=== PATIENT | female | born 1940 | race Caucasian/White ===

== ENCOUNTER 2016-10-13 14:36 | Day surgery (SDC) | payer OTHER ==
[2016-10-13 15:00] LABS: MANUAL DIFF NEEDED? NO
[2016-10-13 15:19] LABS: EOS# 0.02 X1000 (0.0-0.7); EOS% 1.1 % (0.0-10.0); HEMATOCRIT 20.4 % (37.0-47.0); HEMOGLOBIN 6.6 g/dL (12.0-16.0); LYMPH# 0.55 X1000 (1.2-3.4); LYMPH% 30.7 % (20.5-51.1); MCH 28.2 PG (27-31); MCHC 32.4 g/dL (33-37); MCV 87.2 FL (81-99); MONO# 0.03 X1000 (0.11-0.59); MONO% 1.7 % (1.7-9.3); MPV 9.2 FL (7.4-10.4); NEUT% 66.5 % (42.2-75.2); PLT 78 X1000 (130-400); RBC 2.34 XMIL (4.2-5.4)
[2016-10-14] MEDS ORDERED: BENADRYL ONE (08:58)
[2016-10-14] MEDS ORDERED: NS 250 ML ONE (08:58)
[2016-10-14] MEDS ORDERED: TYLENOL ONE (08:58)
[2016-10-14 13:02] VITALS: BP 128/56
== END 2016-10-14 13:00 | disposition home or self-care (01) ==
LOC: INF 14:36
PROVIDERS: ATTEND Internal Medicine Medical Oncology
DX: D64.9 Anemia, unspecified (principal)
CPT/HCPCS: 36415; 36430; 85025; 86850; 86900; 86901; 86920; J1200; J7050; P9016

== ENCOUNTER 2016-12-24 21:47 | Inpatient (IN) ==
[2016-12-24 22:22] LABS: INR 1.25; PROTIME 13.3 Seconds (9.2-11.7); PTT 35.3 Seconds (22.0-36.0)
[2016-12-24 22:23] LABS: BASO% 1.2 % (0.0-0.8); HEMATOCRIT 23.2 % (37.0-47.0); HEMOGLOBIN 7.8 g/dL (12.0-16.0); IMM GRAN# 0.05 X1000 (0.0-0.04); IMM GRAN% 6.2 % (0.0-0.5); LYMPH% 74.1 % (20.5-51.1); MANUAL DIFF NEEDED? YES; MCH 27.9 PG (27-31); MCHC 33.6 g/dL (33-37); MCV 82.9 FL (81-99); MONO# 0.04 X1000 (0.11-0.59); MONO% 4.9 % (1.7-9.3); MPV 8.8 FL (7.4-10.4); NEUT% 13.6 % (42.2-75.2); PLT 122 X1000 (130-400)
[2016-12-24 22:36] LABS: LYMPHS 70 % (21-51); MONO 5 % (1-9)
[2016-12-24 22:38] LABS: AGAP 12; ALBUMIN 3.5 g/dL (3.5-5.0); ALKALINE PHOSPHATASE 90 U/L (32-104); BUN 19 mg/dL (8-22); CALCIUM 8.9 mg/dL (8.8-10.2); CHLORIDE 98 mmol/L (98-107); COSMO 270; GOT 23 U/L (10-30); GPT 16 U/L (10-36); POTASSIUM 4.2 mmol/L (3.5-5.1); SODIUM 134 mmol/L (136-145); TCO2 24 mmol/L (25-35); TOTAL PROTEIN 6.2 g/dL (6.3-8.3)
[2016-12-25] MEDS ORDERED: ZOFRAN IV PRN (02:52)
[2016-12-25] MEDS ORDERED: ULTRAM PO PRN (03:02)
[2016-12-25] MEDS ORDERED: LEVAQUIN PO SCH (03:15)
[2016-12-25] MEDS ORDERED: NS 500 ML ONE (03:42)
--- NOTE | 2016-12-25 05:20 | EKG Report ---
Test Performed on : 12/24/2016 9:53:16 PM Test Reason : WEAKNESS Blood Pressure : / mmHG Vent. Rate : 073 BPM Atrial Rate : 073 BPM P-R Int : 112 ms QRS Dur : 096 ms QT Int : 410 ms P-R-T Axes : 004 -14 035 degrees QTc Int : 451 ms Normal sinus rhythm. Normal ECG No previous ECGs available Unconfirmed Result
[2016-12-25] MEDS: PRILOSEC PO SCH (06:21)
[2016-12-25] MEDS ORDERED: HUMULIN R SUBQ SCH (07:00)
[2016-12-25] MEDS ORDERED: INSULIN PEN NEEDLES ONE (07:35)
[2016-12-25] MEDS ORDERED: CELEXA PO SCH (09:00)
[2016-12-25] MEDS ORDERED: MOBIC PO SCH (09:00)
[2016-12-25 09:03] LABS: AGAP 13; BUN 20 mg/dL (8-22); CALCIUM 8.7 mg/dL (8.8-10.2); CHLORIDE 100 mmol/L (98-107); COSMO 272; POTASSIUM 3.9 mmol/L (3.5-5.1); SODIUM 135 mmol/L (136-145); TCO2 22 mmol/L (25-35)
[2016-12-25 09:08] LABS: HEMOGLOBIN 8.6 g/dL (12.0-16.0); LYMPH# 0.59 X1000 (1.2-3.4); LYMPH% 76.6 % (20.5-51.1); MANUAL DIFF NEEDED? YES; MCH 28.3 PG (27-31); MCHC 34.4 g/dL (33-37); MCV 82.2 FL (81-99); MONO# 0.03 X1000 (0.11-0.59); MONO% 3.9 % (1.7-9.3); MPV 8.1 FL (7.4-10.4); NEUT% 19.5 % (42.2-75.2); PLT 115 X1000 (130-400); RBC 3.04 XMIL (4.2-5.4)
[2016-12-25 09:19] LABS: LYMPHS 80 % (21-51)
[2016-12-25] MEDS: CELEXA PO SCH (09:48)
[2016-12-25] MEDS: IMDUR PO SCH ×2 (09:49→21:51)
[2016-12-25] MEDS: TENEX PO SCH (09:49)
[2016-12-25] MEDS: ARICEPT PO SCH (09:49)
[2016-12-25] MEDS: NON-FORMULARY BULK MED SUBQ SCH (09:50)
--- NOTE | 2016-12-25 10:11 | HISTORY AND PHYSICAL ---
CHIEF COMPLAINT: Weakness. HISTORY OF PRESENT ILLNESS: This is a 76-year-old female who presents from home. She is not frequently admitted but she has a myelodysplastic syndrome for which she is getting treatment from Dr. Jiang. The last treatment was 1-2 weeks ago per the patient. She came in this evening because her family felt that she was not her usual self. She could no longer walk or even get up out of bed. Her workup in the ER revealed anemia which was actually improved from where she was previously but she is still very short-winded and she cannot get up and out of bed. Her hemoglobin this evening is around 7.8. She was placed in observation for a transfusion. She denies any focal source of infection. No fevers, chills, dysuria, abdominal pain, nausea, or vomiting. PAST MEDICAL HISTORY: 1. CAD. 2. Dyslipidemia. 3. Osteoporosis. 4. Type 2 diabetes. 5. CVA, history of. 6. Depression. SURGICAL HISTORY: She has had hysterectomy. ALLERGIES: Cipro, penicillin, and sulfa. REVIEW OF SYSTEMS: She has had many transfusions since July. Dr. Jiang is her primary oncologist. She has had several transfusions. Her last transfusion looked like it was on the . She had 2 units then. She had another 2 units on the , 2 units on the , on the 04 of November, on the 14 of October, in September. She was actually due for a transfusion in the morning but the family was very insistent that the patient needs to be watched overnight because her physical conditioning was very poor. Other issues, she is neutropenic but she does report she received colony-stimulating factor. Review of systems otherwise negative. FAMILY HISTORY: Reviewed and noncontributory. SOCIAL HISTORY: No tobacco or ethanol. MEDICATION LIST: She is on Celexa. Here, it says about 60 daily. Aricept 10 daily, Tenex 1 daily, Tresiba 25 units daily, Humalog, Imdur, Levaquin, Linzess, Mobic, and tramadol. PHYSICAL EXAMINATION: VITAL SIGNS: Blood pressure 126/39, heart rate 65, respiratory rate 23, temperature 99.4 degrees, 94% on room air. GENERALLY: Obese female in no acute distress. HEAD: Normocephalic, atraumatic. EYES: Pupils equal, round, reactive to light. Extraocular movements were intact. Pale conjunctivae. NECK: Supple. CARDIOVASCULAR: Regular rate and rhythm. PULMONARY: Bilateral breath sounds clear to auscultation. GI: Soft, nontender, nondistended. Bowel sounds are positive. EXTREMITIES: No clubbing or cyanosis. LYMPHATICS: No peripheral edema. NEUROLOGICAL: Examination was nonfocal. SKIN: She had diffuse small petechiae. LABORATORY DATA: White count 0.8, hemoglobin and hematocrit 7 and 23, platelets 122,000. Her neutrophil percentage is only 13%. INR 1.25. Her electrolytes were normal except for bilirubin. PROBLEM LIST: 1. Symptomatic anemia. We will go ahead and transfuse her 2 units and follow. We will get hematology/oncology opinion tomorrow. Dr. Jiang will follow. 2. Neutropenia. We will continue to monitor. Obviously, she is at risk for infection. We will monitor for elevated temperature. I am going to get blood and urine cultures, and follow clinically. It does not look like she has actually had a chest x-ray so we will go ahead and attain that. 3. Diabetes. We will continue to monitor her blood sugars and treat as follows. 4. Further care will be per Dr. Jiang and Dr. Treviño. This is his primary patient. cc: Dr. Wayne Faye MD
[2016-12-25] MEDS: LEVAQUIN PO SCH (10:16)
--- NOTE | 2016-12-25 11:58 | Diag Imaging Result Doc PS360 ---
CHEST-2 VIEWS - 12/25/2016 INDICATION: hypoxia COMPARISON: 12/10/2015 FINDINGS: Stable mild cardiomegaly. Stable calcified granulomas in the right upper lobe and hilum. No focal infiltrates, pneumothorax, or pleural effusion. IMPRESSION: Mild cardiomegaly. No change from prior. Electronically signed by Adam Gutiérrez 12/25/2016 11:55 AM
[2016-12-25] MEDS: PATIENT'S OWN MED PO SCH (12:05)
--- NOTE | 2016-12-25 12:53 | CONSULTATION ---
DATE OF CONSULTATION: 12/25/2016 REASON FOR CONSULT: This patient is known to us. 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 HISTORY OF PRESENT ILLNESS: This patient with myelodysplastic complex syndrome with complex karyotype and pancytopenia is known to us. She has had 4 cycles of Vidaza, last received on December 09, and she is due to have a repeat bone marrow biopsy performed on the of this month in [place]. She had labs in our office on the and the white count was 0.8 , hemoglobin 8.6, and platelet count of 102,000. She was afebrile, felt well, so we advised her to avoid raw foods, to drink filtered water, and wear mask anytime she is out in public. We also gave her a prescription of Levaquin 500 mg a day for 7 days. We have not been giving her any Neupogen due to her upcoming bone-marrow biopsy. She has been on Procrit for her chemotherapy-induced anemia per guidelines, and we also have been transfusing her as needed for a hemoglobin less than 8 as she has some coronary artery disease and she is also on B12 supplementation. She states that she came in after feeling just very weak. She states she had a low-grade fever of 100 point something; she does not know quite what it was. She states that she was feeling dizzy when she got up, when she would stand. Denies any drenching night sweats, new lumps, bumps, bone pain, or abdominal symptoms, any clinical bleeding, bright red stool. Labs were checked upon arriving to the ER. They showed a white count of 0.8, hemoglobin 7.8, and platelet count of a 122, 000. Patient has had a maximum temperature of 100.9 degrees since she has been admitted. She has been started on Levaquin. This was after blood and urine cultures were obtained. Blood culture tentatively negative. UA is pending. We have been asked to follow along. REVIEW OF SYSTEMS: Negative unless indicated in HPI. 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 ALLERGIES: Cipro, penicillin, sulfa. FAMILY/SOCIAL HISTORY: Family history is noncontributory. The patient denies alcohol, tobacco, or illicit drug use. MEDICATIONS: Celexa, Aricept, Levaquin, Mobic, tramadol. PHYSICAL EXAMINATION: General: This is a female, in no acute distress. HEENT: Head normocephalic, atraumatic. Pupils equal, round, symmetric. Neck: Supple. Trachea midline. Cardiovascular: S1, S2 audible to auscultation with no heaves, lifts, thrills. Pulmonary: Breath sounds clear to auscultation with normal respiratory effort. GI: Abdomen nondistended. No palpable masses. Positive bowel sounds in all 4 quadrants. It is lightly tender. Musculoskeletal: No bony abnormality. Skin: No petechiae, ecchymosis, or rash. Neurologic: Alert and oriented x3. ASSESSMENT AND PLAN: 1. Myelodysplastic syndrome with complex karyotype and pancytopenia. She has had 4 cycles of Vidaza, last received on 12/09/2016, and is due to have her repeat bone marrow biopsy on the at [facility]. She has had blood and urine cultures performed. She is currently on Levaquin. She does have a low-grade fever. Follow the cultures. Would not give any new Neupogen due to her upcoming bone-marrow biopsy. Continue to monitor CBC and transfuse as needed. Chest x- ray has been performed but has not been read yet. 2. Anemia. She had been on Procrit per guidelines. It is multifactorial from her recent chemotherapy and also for myelodysplasia. We have been transfusing as needed. 3. B12 deficiency. She has been on supplementation. 4. Coronary artery disease. Dictated by PIERCE Sandhu for Diony Jiang MD cc: PIERCE Sandhu MD M. Neel Roberts, MD [facility]PITALNubia
[2016-12-25] MEDS: HUMULIN R SUBQ SCH ×3 (14:11→21:58)
[2016-12-25 19:18] LABS: HEMATOCRIT 28.2 % (37.0-47.0); HEMOGLOBIN 9.6 g/dL (12.0-16.0); IMM GRAN# 0.05 X1000 (0.0-0.04); LYMPH# 0.43 X1000 (1.2-3.4); LYMPH% 60.6 % (20.5-51.1); MANUAL DIFF NEEDED? YES; MCH 27.8 PG (27-31); MCV 81.7 FL (81-99); MONO# 0.07 X1000 (0.11-0.59); MONO% 9.9 % (1.7-9.3); MPV 8.3 FL (7.4-10.4); NEUT% 22.5 % (42.2-75.2); PLT 115 X1000 (130-400); RBC 3.45 XMIL (4.2-5.4)
[2016-12-25 19:42] LABS: BANDS 2 % (0-1); LYMPHS 66 % (21-51)
[2016-12-25 19:43] LABS: LARGE PLATELETS OCCASIONAL
[2016-12-25 20:31] LABS: URINE CULTURE NEEDED? NO; URINE MICRO REVIEW NEEDED? NO; URINE SOURCE CATH
[2016-12-25 20:35] LABS: BILIRUBIN URINE NEGATIVE (NEGATIVE); BLOOD URINE MODERATE (NEGATIVE); COLOR YELLOW; GLUCOSE URINE NEGATIVE (NEGATIVE); LEUKOCYTES URINE NEGATIVE (NEGATIVE); NITRITE URINE NEGATIVE (NEGATIVE); PROTEIN URINE NEGATIVE (NEGATIVE); SP GRAVITY URINE 1.011; TURBIDITY URINE CLEAR (CLEAR); UR EPITHELIAL CELLS <10 /HPF (<10); URINE BACTERIA NEGATIVE /HPF; URINE RBC 20-40 /HPF (<10); URINE WBC <10 /HPF (<10); UROBILINOGEN URINE 8 mg/dL (NORMAL)
[2016-12-25] MEDS: TYLENOL PO PRN (21:51)
[2016-12-26 05:54] LABS: HEMATOCRIT 28.1 % (37.0-47.0); HEMOGLOBIN 9.7 g/dL (12.0-16.0); IMM GRAN# 0.02 X1000 (0.0-0.04); IMM GRAN% 2.9 % (0.0-0.5); LYMPH# 0.52 X1000 (1.2-3.4); LYMPH% 74.3 % (20.5-51.1); MANUAL DIFF NEEDED? YES; MCH 27.9 PG (27-31); MCHC 34.5 g/dL (33-37); MCV 80.7 FL (81-99); MONO# 0.02 X1000 (0.11-0.59); MONO% 2.9 % (1.7-9.3); MPV 8.2 FL (7.4-10.4); NEUT% 19.9 % (42.2-75.2); PLT 112 X1000 (130-400); RBC 3.48 XMIL (4.2-5.4)
[2016-12-26 06:11] LABS: LYMPHS 70 % (21-51)
[2016-12-26] MEDS: HUMULIN R SUBQ SCH ×4 (06:17→22:17)
[2016-12-26] MEDS: PRILOSEC PO SCH (06:18)
[2016-12-26] MEDS: CELEXA PO SCH (08:26)
[2016-12-26] MEDS: IMDUR PO SCH ×2 (08:26→20:26)
[2016-12-26] MEDS: PATIENT'S OWN MED PO SCH (08:26)
[2016-12-26] MEDS: TENEX PO SCH (08:27)
[2016-12-26] MEDS: LEVAQUIN PO SCH (08:27)
[2016-12-26] MEDS: ARICEPT PO SCH (08:27)
[2016-12-26] MEDS: NON-FORMULARY BULK MED SUBQ SCH (08:27)
--- NOTE | 2016-12-26 09:22 | PROGRESS NOTE ---
DATE: 12/26/2016 SUBJECTIVE: Ms. Arboleda has a longstanding history of myelodysplastic syndrome with refractory anemia. She continues with persistent neutropenia. Her total white count was 700. On admission, her white count was 810. On 12/25/2016, her white count was 710. She has been on Levaquin. Urine cultures are negative. Blood cultures are pending. Her chest x-ray was clear. Blood sugars are ranging from 91-108. She denies any polyuria, polydipsia or episodes of symptomatic hypoglycemia. OBJECTIVE: Vital Signs: T-max 101.1 degrees, current temperature 98.5 degrees. Pulse 64, BP 138/63. CV: Regular rate and rhythm. Lungs: Clear. Abdomen: Mild left lower quadrant tenderness to deep palpation. No rebound or guarding. LABORATORY DATA: BMP demonstrated the following. Sodium 135, potassium 3.9, BUN 20, creatinine 0.6, glucose 108. CBC demonstrated a white count of 0.7, hemoglobin 9.7, hematocrit 28.1, and a platelet count of 112,000. ASSESSMENT AND PLAN: 1. Febrile neutropenia. She continues with a fever. Her leukopenia and neutropenia have not improved. She has been scheduled for a bone marrow biopsy Thursday in [place], and we want to hold off giving her Neupogen in and in anticipation of that bone marrow biopsy. I am going to add Primaxin 500 mg IV q.8 hours and continue the Levaquin. We will continue broad- spectrum antibiotics. Until she is afebrile for at least 24 hours. If she continues to spike fevers over the weekend, she will not be able to have her biopsy on Thursday. 2. Type 2 insulin-dependent diabetes mellitus. Her blood sugars are stable. We will continue an 1800 calorie [employer] diet, pattern sugars, Humulin R sliding scale, and her regular home dosage of Tresiba. cc: Tomi Black MD
[2016-12-26] MEDS: PRIMAXIN 500 MG in NS 100 ML IV SCH ×2 (13:05→20:26)
[2016-12-26] MEDS: TYLENOL PO PRN (20:26)
[2016-12-27] MEDS: PRIMAXIN 500 MG in NS 100 ML IV SCH ×3 (04:55→20:37)
[2016-12-27] MEDS: PRILOSEC PO SCH (06:04)
[2016-12-27 07:19] LABS: HEMATOCRIT 27.7 % (37.0-47.0); HEMOGLOBIN 9.4 g/dL (12.0-16.0); LYMPH# 0.41 X1000 (1.2-3.4); LYMPH% 69.5 % (20.5-51.1); MANUAL DIFF NEEDED? YES; MCH 27.7 PG (27-31); MCHC 33.9 g/dL (33-37); MCV 81.7 FL (81-99); MONO# 0.04 X1000 (0.11-0.59); MONO% 6.8 % (1.7-9.3); MPV 8.3 FL (7.4-10.4); NEUT% 23.7 % (42.2-75.2); PLT 132 X1000 (130-400); RBC 3.39 XMIL (4.2-5.4)
[2016-12-27] MEDS: HUMULIN R SUBQ SCH ×4 (07:26→21:20)
[2016-12-27 07:28] LABS: LYMPHS 74 % (21-51); MONO 6 % (1-9)
--- NOTE | 2016-12-27 08:35 | PROGRESS NOTE ---
DATE: 12/27/2016 SUBJECTIVE: Ms. Arboleda has a history of MDS with refractory anemia. We have already transfused 2 units of packed red blood cells today. She last had a Vidaza treatment over 10 days ago. Her white counts remain persistently suppressed. She last spiked a fever on 12/25/2016 of 101.0. She did have low-grade fever of 99.5 last night. We had added Primaxin to the Levaquin that she was already taking. Urine and blood cultures were all negative. Chest x-rays are clear. Blood sugars are ranging from 81-123. She denies any localizing symptoms of infection including dysuria, increased urinary frequency, low back pain, nausea, vomiting or unexplained cough. SUBJECTIVE: Vital Signs: Temperature 97.8 degrees, pulse 64, respirations 18, BP 140/60, CV regular rate and rhythm. Lungs: Clear. Abdomen: Soft, nontender, with active bowel sounds. No hepatosplenomegaly. No abdominal bruits. ASSESSMENT AND PLAN: 1. Febrile neutropenia. We will continue broad-spectrum antibiotics including Primaxin and Levaquin until she has had no fever for a minimum of 24 hours. If she remains afebrile today, it is my hope to discharge her home tomorrow so that she can undergo followup bone marrow biopsy in [place] on Thursday. We will hold off giving Neupogen because it would invalidate the bone marrow biopsy. 2. Refractory anemia secondary to myelodysplastic syndrome. We will transfuse on an as-needed basis to maintain a hemoglobin greater than 8 given her history of heart disease. 3. Type 2 insulin-dependent diabetes mellitus. We will continue an 1800 calorie ADA diet, pattern sugars, Humulin R sliding scale on her regular home dosage of Tresiba. cc: Tomi Black MD
[2016-12-27] MEDS: NON-FORMULARY BULK MED SUBQ SCH (08:45)
[2016-12-27] MEDS: ARICEPT PO SCH (08:45)
[2016-12-27] MEDS: CELEXA PO SCH (08:45)
[2016-12-27] MEDS: IMDUR PO SCH ×2 (08:45→20:37)
[2016-12-27] MEDS: PATIENT'S OWN MED PO SCH (08:45)
[2016-12-27] MEDS: LEVAQUIN PO SCH (08:45)
[2016-12-27] MEDS: TENEX PO SCH (08:45)
[2016-12-28] MEDS: PRIMAXIN 500 MG in NS 100 ML IV SCH (04:51)
[2016-12-28] MEDS: HUMULIN R SUBQ SCH (06:40)
[2016-12-28] MEDS: PRILOSEC PO SCH (06:40)
[2016-12-28 07:23] LABS: HEMATOCRIT 29.2 % (37.0-47.0); LYMPH# 0.62 X1000 (1.2-3.4); LYMPH% 79.5 % (20.5-51.1); MANUAL DIFF NEEDED? YES; MCH 28.2 PG (27-31); MCHC 34.2 g/dL (33-37); MCV 82.3 FL (81-99); MONO# 0.09 X1000 (0.11-0.59); MONO% 11.5 % (1.7-9.3); MPV 8.5 FL (7.4-10.4); PLT 147 X1000 (130-400); RBC 3.55 XMIL (4.2-5.4)
[2016-12-28 08:03] LABS: BANDS 2 % (0-1); HYPOCHROM 1+; LYMPHS 81 % (21-51); MONO 5 % (1-9)
[2016-12-28 08:07] VITALS: BP 163/66
[2016-12-28] MEDS: ARICEPT PO SCH (08:46)
[2016-12-28] MEDS: PATIENT'S OWN MED PO SCH (08:47)
[2016-12-28] MEDS: TENEX PO SCH (08:47)
[2016-12-28] MEDS: CELEXA PO SCH (08:47)
[2016-12-28] MEDS: LEVAQUIN PO SCH (08:47)
[2016-12-28] MEDS: IMDUR PO SCH (08:47)
--- NOTE | 2016-12-28 13:54 | PROGRESS NOTE ---
DATE: 12/28/2016 CC/HPI: Patient has felt reasonably well yesterday. She continues to have baseline symptoms of tiredness and fatigue. The fevers have subsided. PHYSICAL EXAMINATION: Vital signs: Afebrile, 97.5, pulse 87, blood pressure 163/60. HEENT: EOMI. PERRLA. Anicteric. Mucous membranes are moist. Cardiac Exam: Regular rate and rhythm. Normal S1, S2. Chest: Clear to auscultation. Abdomen: Soft, nontender, without hepatosplenomegaly or masses. Extremities: Reveals mild edema. LABORATORY DATA: White count 0.78, hemoglobin 10, hematocrit 29, platelets 147,000. ANC is 0.07. ASSESSMENT/PLAN: 1. Neutropenic fever: She is afebrile over the last [address] Black. She is okay for discharge with Levaquin and Bactrim. She is due to have a bone marrow biopsy tomorrow at [facility]. I have advised to keep her appointment. 2. Anemia: She received 2 units of packed red blood cells this hospitalization. Hemoglobin has nicely improved. 3. Thrombocytopenia: Due to myelodysplastic syndrome. This also seems to be slightly improved. 4. High risk myelodysplastic syndrome: She has received 4 cycles of Vidaza. She is due to have a bone marrow biopsy evaluation tomorrow at [facility]. Plan further management accordingly. cc: MD Tomi Gramajo MD
--- NOTE | 2016-12-29 06:40 | DISCHARGE SUMMARY ---
ADMISSION DATE: 12/26/2016 DISCHARGE DATE: 12/28/2016 DISCHARGE DIAGNOSES: 1. Febrile neutropenia. 2. Myelodysplasia with chronic iron deficiency anemia requiring Procrit injections and chronic transfusions. 3. Chronic iron deficiency anemia secondary to myelodysplasia syndrome. 4. Essential hypertension. 5. 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 6. Primary hypothyroidism. 7. Ischemic heart disease. 8. Mixed hyperlipidemia. 9. Previous CVA. DISCHARGE INSTRUCTIONS: Return to clinic in 1 week to see me Dr. Lloyd Black in anticipation of a transition of care visit. ACTIVITY: As tolerated. DIET: 1800 calorie ADA diet MEDICATIONS: 1. Celexa 40 mg daily. 2. Aricept 10 mg daily. 3. Tenex 1 mg daily. 4. Imdur 30 mg b.i.d. 5. Levofloxacin 500 mg daily for 10 days. 6. Tresiba 25 units subcutaneously daily. 7. Humalog 12 units t.i.d. with meals. 8. Linzess 72 mcg daily. 9. Ultram 50 mg q.6 hours p.r.n. HISTORY: This is a chronically ill-appearing 76-year-old lady in no apparent distress. She is afebrile. Vital signs are stable. HEENT: Fundi with arteriolar wall thickening. Pupils equal, round and reactive to light. Extraocular eye movements intact. TMs without bullae. Neck supple. No masses, JVD or bruits. CV: Regular rate and rhythm. Lungs: Clear. Abdomen: Soft and nontender with active bowel sounds. HOSPITAL COURSE: The patient has a longstanding history of myelodysplasia syndrome with refractory anemia requiring chronic transfusions and Procrit injections. She was initially admitted to [facility] for weakness. She was noted to be markedly anemic. Her hemoglobin was 7.8 and her hematocrit was 23.2. She was transfused 2 units of packed red blood cells. At discharge, her hemoglobin was 10.0 and her hematocrit was 29.2. We attempt to maintain hemoglobin greater than 8 given her underlying ischemic heart disease. She has been persistently neutropenic and has been taking oral Levaquin as an outpatient. She remained significantly neutropenic. Her white count was 0.81 on admission and 0.78 on discharge. She is scheduled for a bone marrow biopsy at [facility] tomorrow and therefore we did not give her Neupogen injections during her hospitalization. She did spike a fever and we placed her on broad-spectrum antibiotics including Levaquin and Primaxin. Blood cultures were negative. Urine culture was negative. Chest x-rays were negative. She was maintained on IV antibiotics until she remained afebrile. She has not had any fever in [address] Jiang and I felt that she was stable for discharge, and we will discharge her home on oral Levaquin 500 mg daily for an additional 10 days. She does have a longstanding history of hypertension. Her blood pressure remained well controlled. She denied any chest pain, palpitations, or anginal equivalents. We will make arrangements for her to have home health at home. I would like a psych social worker to assess her home needs. She is still weak and I believe that she would benefit from physical therapy at home. cc: Tomi Black MD
[2016-12-29] MEDS ORDERED: LEVAQUIN PO SCH (09:00)
--- NOTE | 2017-01-08 14:44 | PROVIDER DOCUMENTATION ---
This chart was entered by Isis Jaramillo Scribe, acting as scribe for Hudson Simmons MD. HPI-General Adult - General Chief Complaint: Weakness Stated Complaint: weakness Time Seen by Provider: 12/25/16 01:01 Source: patient Allergies/Adverse Reactions: Patient Allergies Allergy/AdvReac Type Severity Reaction Status Date / Time ciprofloxacin Allergy RASH Verified 12/19/16 09:30 Penicillins Allergy RASH Verified 12/19/16 09:30 Sulfa (Sulfonamide Allergy RASH Verified 12/19/16 09:30 Antibiotics) Home Medications: Home Medication List Medication Instructions Recorded Confirmed Last Taken Type Citalopram [Celexa] 40 mg PO DAILY 03/04/13 01/13/17 01/13/17 06:30 History Isosorbide Mononitrate E.r. [Imdur] 30 mg PO BID 09/08/13 01/13/17 01/13/17 06: 30 History Donepezil [Aricept] 10 mg PO QAM 07/30/16 01/13/17 01/13/17 06:30 History Insulin Degludec [Tresiba 25 unit SQ DAILY 07/30/16 01/13/17 01/12/17 History Flextouch U-100] Insulin Lispro [Humalog] 12 unit SQ AC + HS 07/30/16 01/13/17 01/12/17 History Meloxicam [Mobic] 7.5 mg PO DAILY 07/30/16 01/13/17 01/13/17 06:30 History Guanfacine [Tenex] 1 mg PO DAILY 12/19/16 01/13/17 01/13/17 06:30 History Tramadol HCl 50 mg PO Q6H PRN PRN 12/19/16 01/13/17 12/19/16 History Linaclotide [Linzess] 72 mcg PO DAILY 12/24/16 01/13/17 01/13/17 06:30 History Levofloxacin [Levaquin] 500 mg PO DAILY #10 tablet 12/28/16 01/13/17 01/12/17 Rx Omeprazole [Prilosec] 40 mg PO DAILY@0700 capsule 12/28/16 01/13/17 01/13/17 06 :30 Rx - History of Present Illness -Gen Adult Nature of Presenting Problems: 76 year old F presents to the ED with a cc of generalized weakness with an onset of this evening. Son states that she is usually weak but is able to get around. He states tonight pt was unable to lift herself off the couch. PT has MDS and states that she has had 4 chemo treatments. PT states that she had a blood transfusion on Thursday of 2 units. Blood levels were checked on Thursday and Hgb was 8.7. Location of Pain/Injury: reports: none Pain Radiation: reports: no radiation Severity: reports: mild Onset/Duration: reports: this evening Timing: reports: still present Context/Activities at Onset: reports: none Modifying Factors: improves with: nothing Associated Symptoms: reports: weakness Similar Symptoms Previously?: No Recently seen or treated by another doctor?: Yes Review of Systems - Adult - REVIEW OF SYSTEMS - ADULT Constitutional: denies: chills, fever Eyes: reports: no symptoms reported Ears, Nose, Mouth & Throat: reports: no symptoms reported Cardiovascular: reports: no symptoms reported Respiratory: reports: no symptoms reported Gastrointestinal: denies: nausea, vomiting Genitourinary: denies: dysuria, hematuria Musculoskeletal: reports: muscle weakness. denies: muscle aches Integumentary: denies: skin sores/ulcer, skin thickening Neurological: reports: no symptoms reported Psychiatric: reports: no symptoms reported Endocrine: reports: no symptoms reported Hematologic/Lymphatic: reports: no symptoms reported Allergic/Immunologic: reports: no symptoms reported All Other Systems: Reviewed and Negative Past History - Adult - PAST MEDICAL HISTORY-ADULT Review of Records: reports: Nursing Assessment Review, Medications Reviewed Major Childhood Illnesses: reports: denies history Cardiovascular: reports: HTN Endocrine/Immune: reports: cancer (MDS), Diabetes - PRIOR SURGERIES/PROCEDURES Surgical/Procedure History: reports: hysterectomy - IMMUNIZATION STATUS Childhood Immunizations: See Nurse Assessment Flu Vaccine: See Nurse Assessment - SOCIAL HISTORY Smoking: non-smoker Substance Use: none/never Alcohol Use Frequency: occasionally Physical Exam-General - PHYSICAL EXAM-ADULT Initial Vital Signs Reviewed: Yes - CONSTITUTIONAL General Appearance: appears well, alert, no apparent distress - RESPIRATORY Respiratory: chest non-tender, lungs clear, normal breath sounds - CARDIOVASCULAR Cardiovascular: normal peripheral pulses, regular rate, rhythm, no edema - GASTROINTESTINAL (ABDOMEN) Abdominal Exam: normal bowel sounds, non tender, soft - SKIN Integumentary: petechiae (anterior chest, upper thighs) - PSYCHIATRIC Psych/Mental Status: normal mood/affect, normal thought content, normal thought process, oriented x 3 Progress - PLAN OF CARE/RESULTS Progress/Plan/Lab Results: Vital Signs - 8 hr 12/24/16 22:09 12/25/16 00:10 Temperature 98.2 F Pulse Rate 71 67 Respiratory Rate 24 31 H Blood Pressure 148/42 149/46 O2 Sat by Pulse Oximetry 92 L 95 Laboratory Results - last 24 hr 12/24/16 12/24/16 12/24/16 21:56 22:00 22:00 WBC 0.81 L RBC 2.80 L Hgb 7.8 L Hct 23.2 L MCV 82.9 MCH 27.9 MCHC 33.6 RDW Std Deviation 13.0 Plt Count 122 L MPV 8.8 Immature Gran % (Auto) 6.2 H Neut % (Auto) 13.6 L Lymph % (Auto) 74.1 H [place] % (Auto) 4.9 Eos % (Auto) 0.0 Baso % (Auto) 1.2 H Immature Gran # (Auto) 0.05 H Neut # (Auto) 0.11 L* Lymph # (Auto) 0.60 L [place] # (Auto) 0.04 L Eos # (Auto) 0.00 Baso # (Auto) 0.01 Segmented Neutrophils 25 L Lymphocytes 70 H Monocytes 5 PT INR PTT (Actin FS) Sodium 134 L Potassium 4.2 Chloride 98 Carbon Dioxide 24 L Anion Gap 12 BUN 19 Creatinine 0.8 Estimated GFR/1.73 m2 > 60 BUN/Creatinine Ratio 24 Glucose 95 POC Glucose 91 Calculated Osmolality 270 Calcium 8.9 Total Bilirubin 1.30 H AST 23 ALT 16 Alkaline Phosphatase 90 Total Protein 6.2 L Albumin 3.5 Globulin 2.7 Albumin/Globulin Ratio 1.3 Blood Type Antibody Screen 12/24/16 12/24/16 22:00 22:00 WBC RBC Hgb Hct MCV MCH MCHC RDW Std Deviation Plt Count MPV Immature Gran % (Auto) Neut % (Auto) Lymph % (Auto) [place] % (Auto) Eos % (Auto) Baso % (Auto) Immature Gran # (Auto) Neut # (Auto) Lymph # (Auto) [place] # (Auto) Eos # (Auto) Baso # (Auto) Segmented Neutrophils Lymphocytes Monocytes PT 13.3 H INR 1.25 PTT (Actin FS) 35.3 Sodium Potassium Chloride Carbon Dioxide Anion Gap BUN Creatinine Estimated GFR/1.73 m2 BUN/Creatinine Ratio Glucose POC Glucose Calculated Osmolality Calcium Total Bilirubin AST ALT Alkaline Phosphatase Total Protein Albumin Globulin Albumin/Globulin Ratio Blood Type O NEGATIVE Antibody Screen NEGATIVE Orders Category Date Time Status CBC WITH DIFF [HEME] Stat Lab 12/24/16 22:00 Completed COMPREHENSIVE METABOLIC PANEL [CHEM] Stat Lab 12/24/16 22:00 Completed PROTIME WITH INR [COAG] Stat Lab 12/24/16 22:00 Completed PTT [COAG] Stat Lab 12/24/16 22:00 Completed TYPE & SCREEN [BBK] Stat Lab 12/24/16 22:00 Completed EKG [EKG] Stat Ther 12/24/16 21:50 Ordered Result Diagrams: 12/28/16 06:33 12/25/16 08:35 - EKG 1 Time of EKG reading by physician:: 21:53 EKG Read and Signed by:: Hudson Simmons EKG Interpretation (*Must complete 3 of following elements*): Normal Rate: 73 Rhythm: NSR [place]: normal - CONSULTS/PCP/HOSPITALIST Notification #1 *Consult/PCP/Hospitalist*: Dr. Faye(hospitalist) Time Discussed: 01:30 Consult Disposition: Admit Departure - Departure Date of Disposition Decision: 12/14/16 Time of Disposition Decision: 01:00 DIAGNOSIS: Myelodysplasia (myelodysplastic syndrome) Anemia Qualifiers: Anemia type: bone marrow failure Disposition: ADMITTED INPATIENT 09 Certified Medical Emergency: Emergent Condition: Stable - Critical Care Note This patient required my direct & personal management of CC.: No This chart was documented by the indicated scribe, (Isis Jaramillo Scribe) and accurately reflects the services I performed and decisions made by me, Hudson Simmons MD, as attested by the provider's signature.
== END 2016-12-28 11:30 | disposition home health service (06) ==
LOC: SUPCPDRO → 3N 21:47 → ED 21:47 → SUATTDRO 12-25 02:09
PROVIDERS: ADMIT Internal Medicine; ATTEND Internal Medicine

== ENCOUNTER 2017-01-28 12:32 | Inpatient (IN) ==
[2017-01-28 11:47] LABS: AGAP 13; BUN 16 mg/dL (8-22); CALCIUM 9.3 mg/dL (8.8-10.2); CHLORIDE 103 mmol/L (98-107); COSMO 286; POTASSIUM 4.2 mmol/L (3.5-5.1); SODIUM 141 mmol/L (136-145); TCO2 25 mmol/L (25-35)
[2017-01-28] MEDS ORDERED: TYLENOL PO PRN (12:37)
[2017-01-28] MEDS ORDERED: ZOFRAN IV PRN (12:37)
[2017-01-28] MEDS ORDERED: VANCOMYCIN IV PER PHARMACY MISC SCH (12:37)
[2017-01-28 12:47] LABS: EOS# 0.01 X1000 (0.0-0.7); HEMATOCRIT 24.3 % (37.0-47.0); LYMPH# 0.34 X1000 (1.2-3.4); LYMPH% 69.4 % (20.5-51.1); MANUAL DIFF NEEDED? YES; MCH 27.5 PG (27-31); MCHC 32.9 g/dL (33-37); MCV 83.5 FL (81-99); MONO# 0.01 X1000 (0.11-0.59); MPV 9.1 FL (7.4-10.4); NEUT% 26.6 % (42.2-75.2); PLT 38 X1000 (130-400); RBC 2.91 XMIL (4.2-5.4)
[2017-01-28 12:48] LABS: LYMPHS 80 % (21-51)
--- NOTE | 2017-01-28 13:11 | Diag Imaging Result Doc PS360 ---
EXAM: CHEST-PORTABLE INDICATION: FEBRILE NEUTROPENIA TECHNIQUE: One view COMPARISON: 01/13/2017 FINDINGS: There is stable right chest port. There is evidence of prior granulomatous disease, stable. The lungs are grossly clear. There is no discrete pleural fluid collection or pneumothorax. The cardiac silhouette is borderline to mildly prominent but stable. Central vasculature is unremarkable. IMPRESSION: Borderline to mildly prominent heart. No definite acute pathology. Electronically signed by Steve Gomez 01/28/2017 1:09 PM
[2017-01-28] MEDS: PRIMAXIN 1,000 MG in NS 250 ML IV SCH (13:55)
[2017-01-28] MEDS: NS 1,000 ML IV SCH (13:55)
[2017-01-28 15:42] LABS: URINE CULTURE NEEDED? NO; URINE MICRO REVIEW NEEDED? NO; URINE SOURCE CLEAN CATCH
[2017-01-28 15:49] LABS: BILIRUBIN URINE SMALL (NEGATIVE); BLOOD URINE NEGATIVE (NEGATIVE); COLOR YELLOW; GLUCOSE URINE NEGATIVE (NEGATIVE); LEUKOCYTES URINE NEGATIVE (NEGATIVE); NITRITE URINE NEGATIVE (NEGATIVE); PH URINE 5.5; PROTEIN URINE 30 mg/dL (NEGATIVE); SP GRAVITY URINE 1.045; TURBIDITY URINE CLEAR (CLEAR); UROBILINOGEN URINE 6 mg/dL (NORMAL)
[2017-01-28 15:50] LABS: UR EPITHELIAL CELLS <10 /HPF (<10); URINE BACTERIA NEGATIVE /HPF; URINE RBC <10 /HPF (<10); URINE WBC <10 /HPF (<10)
[2017-01-28] MEDS: VANCOMYCIN 1.25 GM in NS 250 ML IV SCH (16:00)
[2017-01-28] MEDS: HUMULIN R SUBQ SCH ×2 (16:00→21:35)
[2017-01-28] MEDS: IMDUR PO SCH (21:48)
[2017-01-29] MEDS: PRIMAXIN 1,000 MG in NS 250 ML IV SCH ×2 (02:02→14:42)
[2017-01-29] MEDS: NS 1,000 ML IV SCH ×3 (04:03→18:21)
[2017-01-29] MEDS: HUMULIN R SUBQ SCH ×4 (06:04→20:30)
[2017-01-29] MEDS: PRILOSEC PO SCH (06:04)
[2017-01-29] MEDS ORDERED: NON-FORMULARY BULK MED SUBQ SCH (09:00)
[2017-01-29 09:11] LABS: BASO% 1.9 % (0.0-0.8); EOS# 0.01 X1000 (0.0-0.7); EOS% 1.9 % (0.0-10.0); HEMATOCRIT 23.2 % (37.0-47.0); HEMOGLOBIN 7.8 g/dL (12.0-16.0); LYMPH# 0.43 X1000 (1.2-3.4); LYMPH% 81.1 % (20.5-51.1); MANUAL DIFF NEEDED? YES; MCH 28.1 PG (27-31); MCHC 33.6 g/dL (33-37); MCV 83.5 FL (81-99); MONO# 0.01 X1000 (0.11-0.59); MONO% 1.9 % (1.7-9.3); MPV 8.6 FL (7.4-10.4); NEUT% 13.2 % (42.2-75.2); PLT 41 X1000 (130-400); RBC 2.78 XMIL (4.2-5.4)
[2017-01-29 09:38] LABS: LYMPHS 95 % (21-51)
[2017-01-29] MEDS: CELEXA PO SCH (10:12)
[2017-01-29] MEDS: IMDUR PO SCH ×2 (10:12→20:30)
[2017-01-29] MEDS: ARICEPT PO SCH (10:12)
[2017-01-29] MEDS: PATIENT'S OWN MED PO SCH (10:14)
--- NOTE | 2017-01-29 10:44 | PROGRESS NOTE ---
DATE: 01/29/2017 SUBJECTIVE: Mrs. 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 She has been taking oral Levaquin on a daily basis. She was admitted with a fever and chills. Her CBC demonstrated a white count of 0.53, hemoglobin 7.8, and hematocrit of 23.2 this morning. She had a platelet count of 41,000. A urine culture from admission was unremarkable blood cultures from 01/27/2017 were also within normal limits. She has had no further fever chills or hard shaking rigors. There is less erythema, induration, and swelling over the port. Blood pressure is trending upward off blood pressure medicines. This morning her blood pressure was 132/46. Her blood sugars are persistently less than 100. OBJECTIVE: Vital signs: Temperature 98.5 degrees, pulse 66, respirations 16, BP 132/46. CV: Regular rate and rhythm. Lungs: Clear. Abdomen: Soft, nontender, with active bowel sounds. Skin: There is less erythema induration and swelling over the port site. ASSESSMENT AND PLAN: 1. Febrile neutropenia. She has persistent refractory neutropenia. She has just started another chemotherapy agent but unfortunately I feel that her long-term prognosis is poor. We will continue Primaxin and vancomycin pending final cultures. If the 2nd set of blood cultures is still negative at 48 hours, I will arrange for the placement of a PICC line to continue home IV antibiotics with Primaxin and vancomycin for at least an additional 2 weeks. I suspect that the source of the infection is an infected port. She may have just a small local abscess which hopefully will clear with prolonged IV antibiotic therapy. If we cannot clear up the port associated infection, she will need a new port. 2. 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 Given her history of ischemic heart disease, I will type, cross match, and transfuse 1 unit of packed red blood cell in order to keep her hemoglobin at a level of 8 or greater. 3. 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 Blood sugars are too tight. I will continue pattern sugars, Humulin R sliding scale, and an 1800 calorie ADA diet but reduce the dosage of Tresiba to 15 units daily. cc: Tomi Black MD
--- NOTE | 2017-01-29 12:01 | CONSULTATION ---
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 HISTORY OF PRESENT ILLNESS: This patient is known to us with myelodysplastic syndrome converted to AML. She has been transfusion dependent. She has been started on Dacogen and has received 1 cycle of it, last on 01/16/2017. She is chronically pancytopenic. She is on Levaquin daily. She began developing some fever with rigors and night sweats several days ago. She does not know how high her fever was. She was seen at Dr. Kaplan's office and he apparently performed some blood cultures. I do not have these results. She was then seen by her primary care physician, Dr. Black, and complained of the same. Dr. Black noted some erythema to her port site with mild tenderness so he decided to place her inpatient for IV antibiotics. She is currently on vancomycin and Primaxin. Her white count is 0.53, hemoglobin is 7.8, hematocrit is 23.2, platelet count is 41,000. Her white count and platelet count are essentially unchanged from our office. She denies dyspnea or chest pain. REVIEW OF SYSTEMS: Negative unless indicated in the HPI. ALLERGIES: Cipro, penicillin, sulfa drugs. PREVIOUS MEDICAL HISTORY: 1. MDS converted to AML as above. She is transfusion dependent. 2. B12 deficiency, on replacement. 3. Pancytopenia secondary to above. She is transfusion dependent and on chronic Levaquin. 4. She does have known coronary artery disease. 5. Type 2 diabetes. FAMILY AND SOCIAL HISTORY: The patient has good family support. She denies alcohol, tobacco, or illicit drug use. HOME MEDICATIONS: Levaquin, Mobic, tramadol, Celexa, Aricept, Toprol, isosorbide. PHYSICAL EXAMINATION: General: This is a female, in no acute distress. HEENT: Head is normocephalic, atraumatic. Pupils equal, round, and symmetric. Mucous membranes are dry. Trachea is midline. Cardiovascular: S1, S2 audible on auscultation with no heaves, lifts, thrills, or murmurs. Pulmonary: Breath sounds clear to auscultation. Normal respiratory effort. GI: Abdomen is soft, nontender, nondistended. Positive bowel sounds in all 4 quadrants. Skin: No petechiae, ecchymosis, or rash. Musculoskeletal: Moves all extremities. Neurologic: Alert and oriented x3. Psychiatric: Appropriate to the situation. Port site: erythematous and angry looking. DIAGNOSTIC DATA: Chest x-ray shows no acute process. WBCs 0.53, hemoglobin 7.8 , hematocrit 23.2, platelet count 41,000. Blood cultures are pending, as is urine culture. ASSESSMENT AND PLAN: 1. 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 She has had 1 cycle. She is also transfusion dependent. 2. Pancytopenia secondary to above. Transfuse as an as needed basis. She is also on antibiotics per primary team, currently Primaxin and vancomycin. 3. Port infection. She is on Primaxin and vancomycin. Blood cultures are pending. 4. Coronary artery disease. Plan to transfuse as needed for hemoglobin less than 8. Dictated by PIERCE Sandhu for Diony Jiang MD cc: PIERCE Sandhu MD M. Neel Roberts, MD MTDD
[2017-01-29] MEDS ORDERED: BENADRYL PO ONE (13:25)
[2017-01-29] MEDS: VANCOMYCIN 1.25 GM in NS 250 ML IV SCH (16:09)
[2017-01-29] MEDS ORDERED: NS 250 ML ONE (16:20)
[2017-01-29] MEDS: DESYREL PO PRN (20:32)
[2017-01-30] MEDS: PRIMAXIN 1,000 MG in NS 250 ML IV SCH ×2 (00:58→16:06)
[2017-01-30] MEDS: NS 1,000 ML IV SCH ×2 (06:04→22:18)
[2017-01-30] MEDS: PRILOSEC PO SCH (06:04)
[2017-01-30] MEDS: HUMULIN R SUBQ SCH ×4 (06:06→22:15)
[2017-01-30 07:09] LABS: HEMATOCRIT 24.3 % (37.0-47.0); HEMOGLOBIN 8.2 g/dL (12.0-16.0); LYMPH# 0.42 X1000 (1.2-3.4); LYMPH% 82.4 % (20.5-51.1); MANUAL DIFF NEEDED? YES; MCH 28.1 PG (27-31); MCHC 33.7 g/dL (33-37); MCV 83.2 FL (81-99); MONO# 0.02 X1000 (0.11-0.59); MONO% 3.9 % (1.7-9.3); MPV 8.9 FL (7.4-10.4); NEUT% 13.7 % (42.2-75.2); PLT 44 X1000 (130-400); RBC 2.92 XMIL (4.2-5.4)
[2017-01-30] MEDS ORDERED: INSULIN PEN NEEDLES ONE (07:09)
[2017-01-30 07:30] LABS: BANDS 5 % (0-1); LYMPHS 85 % (21-51)
[2017-01-30] MEDS: CELEXA PO SCH (08:25)
[2017-01-30] MEDS: IMDUR PO SCH ×2 (08:25→22:15)
[2017-01-30] MEDS: NON-FORMULARY BULK MED SUBQ SCH (08:26)
[2017-01-30] MEDS: ARICEPT PO SCH (08:27)
[2017-01-30 08:30] LABS: INR 1.12; PROTIME 11.8 Seconds (9.2-11.7)
[2017-01-30] MEDS: PATIENT'S OWN MED PO SCH (08:30)
--- NOTE | 2017-01-30 08:30 | PROGRESS NOTE ---
DATE: 01/30/2017 SUBJECTIVE: Ms. Arboleda was admitted to [facility] with febrile neutropenia. She has had a longstanding history of myelodysplasia, which has converted to acute myelogenous leukemia. Unfortunately, she is not responding to chemotherapy. She has been persistently neutropenic for the past several weeks. She was admitted with febrile neutropenia. She remains afebrile. Urine cultures and blood cultures are negative. A chest x-ray was clear. Blood sugars are ranging from 136-188. We had reduced the dosage of Tresiba to 15 units daily because of persistent hypotension. The port site is much less inflamed and tender. Induration is resolving. OBJECTIVE: Vital Signs: Temperature 98.5 degrees ,pulse 68, BP 156/59. CV: Regular rate and rhythm. Lungs: Clear. Abdomen: Soft, nontender, with active bowel sounds. No hepatosplenomegaly. No abdominal bruits. LABS: Various laboratory studies were performed. A CBC demonstrated a white count 0.51, hemoglobin 8.2, hematocrit 24.3 and a platelet count of 44,000. ASSESSMENT AND PLAN: 1. Febrile neutropenia with systemic inflammatory response syndrome. I suspect that the port was the source of infection. The swelling, erythema and induration around the port has improved greatly on IV antibiotics. We will consult the peripherally inserted central catheter team for line placement. Today we will try to arrange for home IV therapy with Primaxin and vancomycin for an additional 2 weeks and then will recheck blood cultures. We are hoping to be able to avoid having to pull the port. 2. 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 We will transfuse on a p.r.n. basis to maintain hemoglobin greater than 8. 3. Type 2 insulin-dependent diabetes mellitus. I am going to increase Tresiba to 20 units subcutaneously daily. cc: Tomi Black MD
[2017-01-30] MEDS ORDERED: NS 250 ML ONE (13:12)
[2017-01-30] MEDS: VANCOMYCIN 1.25 GM in NS 250 ML IV SCH (14:00)
[2017-01-30] MEDS: DESYREL PO PRN (22:20)
[2017-01-31] MEDS: NS 1,000 ML IV SCH ×2 (01:39→15:44)
[2017-01-31] MEDS: PRIMAXIN 1,000 MG in NS 250 ML IV SCH ×2 (01:39→14:27)
[2017-01-31] MEDS: PRILOSEC PO SCH (06:13)
[2017-01-31] MEDS: HUMULIN R SUBQ SCH ×3 (06:18→15:46)
[2017-01-31 07:13] LABS: EOS# 0.01 X1000 (0.0-0.7); EOS% 2.3 % (0.0-10.0); HEMATOCRIT 22.8 % (37.0-47.0); HEMOGLOBIN 7.6 g/dL (12.0-16.0); LYMPH# 0.35 X1000 (1.2-3.4); LYMPH% 81.4 % (20.5-51.1); MANUAL DIFF NEEDED? YES; MCH 27.8 PG (27-31); MCHC 33.3 g/dL (33-37); MCV 83.5 FL (81-99); MONO# 0.01 X1000 (0.11-0.59); MONO% 2.3 % (1.7-9.3); MPV 8.4 FL (7.4-10.4); PLT 62 X1000 (130-400); RBC 2.73 XMIL (4.2-5.4)
[2017-01-31 07:56] LABS: LYMPHS 90 % (21-51); MONO 5 % (1-9)
[2017-01-31] MEDS: IMDUR PO SCH (08:41)
[2017-01-31] MEDS: ARICEPT PO SCH (08:41)
[2017-01-31] MEDS: CELEXA PO SCH (08:41)
[2017-01-31] MEDS: NON-FORMULARY BULK MED SUBQ SCH (08:43)
[2017-01-31 14:27] VITALS: BP 168/69
--- NOTE | 2017-01-31 15:08 | DISCHARGE SUMMARY ---
ADMISSION DATE: 01/28/2017 DISCHARGE DATE: 01/31/2017 ADMISSION DIAGNOSES: 1. Febrile neutropenia with systemic inflammatory response syndrome secondary to suspected port infection. 2. Transfusion dependent anemia of chronic disease. 3. Myelodysplasia with recent conversion to acute myelogenous leukemia. 4. Ischemic heart disease. 5. 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 6. Mixed hyperlipidemia. 7. Gastroesophageal reflux disease. 8. Essential hypertension. DISCHARGE INSTRUCTIONS: 1. Follow up to see me, Dr. Lloyd Black, in 1 week for transition of care visit. 2. 1800 calorie ADA diet. DISCHARGE MEDICATIONS: 1. Aricept 10 mg daily. 2. Celexa 40 mg daily. 3. Tresiba 15 units subcutaneously daily. 4. Toprol-XL 50 mg daily. 5. Imdur 30 mg b.i.d. 6. Primaxin 1000 mg IV q.12 hours for 2 weeks. 7. Vancomycin 1.25 g IV q.24 hours for 2 weeks. 8. Humalog 12 units plus sliding scale t.i.d. with meals. DISCHARGE PHYSICAL EXAMINATION: This is a chronically ill-appearing, 76-year-old, lady in no apparent distress. She is afebrile. Vital signs are stable. Which you please add. REASON FOR ADMISSION / HOSPITAL COURSE: Mrs. Gaby Arboleda was admitted to [facility] with febrile neutropenia. She has been chronically neutropenic and has been taking oral Levaquin on a daily basis. Recent bone marrow biopsy demonstrated conversion of myelodysplasia to acute myelogenous leukemia. She presented with fevers as high as 101 degrees at home, hard shaking rigors and night sweats. The patient was admitted to [facility] where she was treated with broad-spectrum antibiotics including Primaxin 1000 mg IV q.12 hours and vancomycin 1.25 g IV q.24 hours pending cultures. Blood cultures from 01/27/2017 were within normal limits. Follow-up blood cultures and urine culture from admission were also negative. Chest x-rays were clear. It appeared that her port site was infected. The area over the port was markedly indurated, erythematous and tender to palpation. There was some fluctuance. Given her fever and low white count we felt that she had a systemic inflammatory response syndrome. With aggressive IV antibiotics the area over the port improved significantly at the time of discharge. She did not have any significant erythema, tenderness or redness over the site of the port. I spoke to Dr. Jiang who also followed the patient while she was hospitalized. We felt that she would benefit from a prolonged IV course of antibiotics and a PICC line was placed. We made arrangements with [facility] for the PICC line at home and to administer the IV antibiotics. She will continue Primaxin 1000 mg IV q.12 hours and vancomycin 1.25 g IV q.24 hours for an additional 2 weeks. We will recheck cultures after completion of the IV antibiotics. She does have a longstanding history of refractory anemia. We did give her a unit of blood earlier in her hospitalization. We would like to see her hemoglobin 8 or greater in the setting of ischemic heart disease. On the morning of discharge her hemoglobin and hematocrit were noted to be 7.6 and 22.8. She will be given 2 units of packed red blood cells today and will be discharged home following the transfusion. She does have a longstanding history of hypertension. She had been taking Toprol-XL 50 mg daily and Tenex 1 mg p.o. b.i.d. She was markedly hypotensive on admission. We held her blood pressure medications. Her blood pressure trended upward and we resumed the Toprol-XL 50 mg daily. She has a history of type 2 insulin-dependent diabetes mellitus complicated by polyneuropathy. Her appetite is diminished. She is not eating very well. We held the Humalog 12 units plus sliding scale prior to meals. We resumed the Tresiba 25 units subcutaneously daily. Because of episodes of hypoglycemia we reduced the dosage of Tresiba to 15 units subcutaneously daily. Having reached maximum hospital benefit, the patient was discharged in stable condition. cc: Tomi Black MD
[2017-01-31] MEDS: VANCOMYCIN 1.25 GM in NS 250 ML IV SCH (15:44)
[2017-01-31] MEDS: PATIENT'S OWN MED PO SCH (15:44)
== END 2017-01-31 15:47 | disposition home health service (06) ==
LOC: 3N 19:13
PROVIDERS: ADMIT Internal Medicine; ATTEND Internal Medicine

== ENCOUNTER 2017-02-23 10:45 | Inpatient (IN) ==
[2017-02-23] MEDS ORDERED: ASPIRIN PO STA (11:06)
--- NOTE | 2017-02-23 11:33 | Diag Imaging Result Doc PS360 ---
EXAM: CHEST-PORTABLE HISTORY: CP TECHNIQUE: Portable AP COMPARISON: 01/28/2017 FINDINGS: No change in the right jugular portacatheter. Interval placement of the left sided PICC line. The tip overlies the upper spur vena cava. The heart is enlarged. Mild central vascular prominence. No pleural effusions identified. No consolidation. IMPRESSION: Poor inspiratory effort with mild cardiomegaly and mild central vascular prominence. Electronically signed by Adan Randle 02/23/2017 11:31 AM
[2017-02-23 11:47] LABS: INR 1.23; PROTIME 13.1 Seconds (9.2-11.7); PTT 36.5 Seconds (22.0-36.0)
[2017-02-23 11:52] LABS: AGAP 16; ALBUMIN 3.4 g/dL (3.5-5.0); ALKALINE PHOSPHATASE 138 U/L (32-104); BUN 12 mg/dL (8-22); CALCIUM 8.9 mg/dL (8.8-10.2); CHLORIDE 95 mmol/L (98-107); CK PROFILE 13 U/L (24-173); COSMO 270; GOT 20 U/L (10-30); GPT 12 U/L (10-36); MAGNESIUM 1.7 mg/dL (1.5-2.7); POTASSIUM 4.2 mmol/L (3.5-5.1); SODIUM 133 mmol/L (136-145); TCO2 22 mmol/L (25-35); TOTAL BILIRUBIN 0.84 mg/dL (0.20-1.00); TOTAL PROTEIN 6.8 g/dL (6.3-8.3)
[2017-02-23 11:53] LABS: BASO% 1.1 % (0.0-0.8); EOS# 0.01 X1000 (0.0-0.7); EOS% 1.1 % (0.0-10.0); HEMATOCRIT 23.6 % (37.0-47.0); HEMOGLOBIN 8.2 g/dL (12.0-16.0); LYMPH# 0.43 X1000 (1.2-3.4); LYMPH% 45.3 % (20.5-51.1); MANUAL DIFF NEEDED? YES; MCH 28.3 PG (27-31); MCHC 34.7 g/dL (33-37); MCV 81.4 FL (81-99); MONO# 0.09 X1000 (0.11-0.59); MONO% 9.5 % (1.7-9.3); MPV 8.2 FL (7.4-10.4); PLT 43 X1000 (130-400)
[2017-02-23 12:21] LABS: BANDS 10 % (0-1); LYMPHS 25 % (21-51); MONO 10 % (1-9)
--- NOTE | 2017-02-23 12:49 | Diag Imaging Result Doc PS360 ---
EXAM: ANGIOGRAM/PULMONARY ARTERIES HISTORY: difficulty breathing, left arm swollen TECHNIQUE: CT of the chest with intravenous contrast and reduced radiation dose (clarity.) COMMENT: There are no filling defects in the pulmonary arteries. The aorta is not distended and there is no evidence of dissection. There is a PICC line on the left with its tip in superior vena cava. There is extensive coronary calcification. There is a small effusion in the pericardium. There are bilateral small pleural effusions. The heart size has increased considerably since the previous study of 03/07/2013. The transverse dimension of the heart has increased from 14.5 cm to 16 cm. There is some patchy atelectasis and increased interstitial markings bilaterally. This was not the case at the time the previous study. IMPRESSION: Cardiomegaly, pleural and pericardial effusions and mild interstitial pulmonary edema. Subsegmental atelectasis. No evidence of pulmonary emboli. Findings were discussed with Dr. Black in person at 1240. Electronically signed by Akash Anton 02/23/2017 12:47 PM
--- NOTE | 2017-02-23 13:13 | PROVIDER DOCUMENTATION ---
This chart was entered by Su Jim Scribe, acting as scribe for Bobby Scott MD. HPI-General Adult - General Stated Complaint: CHEST PAIN Time Seen by Provider: 02/23/17 10:59 Source: patient Allergies/Adverse Reactions: Patient Allergies Allergy/AdvReac Type Severity Reaction Status Date / Time ciprofloxacin Allergy RASH Verified 02/23/17 11:31 Penicillins Allergy RASH Verified 02/23/17 11:31 Sulfa (Sulfonamide Allergy RASH Verified 02/23/17 11:31 Antibiotics) Home Medications: Home Medication List Medication Instructions Recorded Confirmed Last Taken Type Citalopram [Celexa] 40 mg PO DAILY 03/04/13 01/28/17 02/22/17 07:00 History Isosorbide Mononitrate E.r. [Imdur] 30 mg PO BID 09/08/13 02/23/17 02/22/17 19: 00 History Donepezil [Aricept] 10 mg PO QAM 07/30/16 01/28/17 02/22/17 07:00 History Tramadol HCl 50 mg PO Q6H PRN PRN 12/19/16 02/23/17 02/23/17 10:00 History Insulin Degludec [Tresiba 15 unit SQ DAILY #1 insuln.pen 01/31/17 02/23/1702/22 07:00 Rx Flextouch U-100] Acyclovir 400 mg PO BID 02/17/17 02/17/17 02/22/17 19:00 History Fluconazole 200 mg PO DAILY 02/17/17 02/22/17 07:00 History Guanfacine [Tenex] 1 mg PO BID 02/17/17 02/23/17 02/22/17 19:00 History Insulin Lispro [Humalog] 12 unit SQ AC + HS PRN 02/17/17 02/23/17 02/22/17 19: 00 History Nystatin Susp [Mycostatin Susp] 5 ml PO 4XDAY 02/17/17 02/23/17 02/22/17 20:00 History Ranitidine [Zantac] 150 mg PO BID 02/17/17 02/23/17 02/22/17 18:00 History Vancomycin HCl/D5w [Vancomycin-D5w 1.25 gm IV HS 02/23/17 02/23/17 02/22/17 20: 00 History 1.25 G/250 ml] - History of Present Illness -Gen Adult Nature of Presenting Problems: 76 yo F presents to the ER with complaint of R sided pleuritic chest pain, no radiation. States the pain started last night. Describes it as constant, more painful with inspiration. Pt has a hx of MDS. EMS reports O2 sat of 88 at home. Quality of Pain: reports: sharp Onset/Duration: reports: last night Timing: reports: constant Associated Symptoms: reports: back/neck pain, chest pain, shortness of breath, pain with inspiration. denies: nausea, vomiting Review of Systems - Adult - REVIEW OF SYSTEMS - ADULT Constitutional: denies: chills, fever Eyes: reports: no symptoms reported Ears, Nose, Mouth & Throat: reports: no symptoms reported Cardiovascular: reports: chest pain. denies: palpitations Respiratory: reports: shortness of breath. denies: cough Gastrointestinal: denies: abdominal pain, diarrhea, nausea, vomiting Genitourinary: reports: no symptoms reported Musculoskeletal: reports: no symptoms reported Integumentary: reports: no symptoms reported Neurological: reports: no symptoms reported Psychiatric: reports: no symptoms reported Endocrine: reports: no symptoms reported Hematologic/Lymphatic: reports: no symptoms reported Allergic/Immunologic: reports: no symptoms reported All Other Systems: Reviewed and Negative Past History - Adult - PAST MEDICAL HISTORY-ADULT Review of Records: reports: Nursing Assessment Review, Medications Reviewed Cardiovascular: reports: HTN Endocrine/Immune: reports: cancer (MDS), Diabetes - PRIOR SURGERIES/PROCEDURES Surgical/Procedure History: reports: hysterectomy - IMMUNIZATION STATUS Childhood Immunizations: See Nurse Assessment Flu Vaccine: See Nurse Assessment Physical Exam-General - PHYSICAL EXAM-ADULT Initial Vital Signs Reviewed: Yes - CONSTITUTIONAL General Appearance: alert, no apparent distress, slow to respond - EYES Eyes: PERRL/EOMI, pink conjunctivae - HEAD, EARS, NOSE, MOUTH & THROAT HENMT: normocephalic/atraumatic, normal ENT inspection, TMs normal, pharynx normal - NECK Neck: supple, normal inspection - RESPIRATORY Respiratory: no respiratory distress, no accessory muscle use, pain on inspiration. negative: no pleuratic chest pain (R sided pleuritic CP) - CARDIOVASCULAR Cardiovascular: normal peripheral pulses, regular rate, rhythm - GASTROINTESTINAL (ABDOMEN) Abdominal Exam: normal bowel sounds, tenderness (mild, RUQ and epigastric) - MUSCULOSKELETAL Back Exam: no CVA tenderness, no vertebral tenderness Extremity: normal gait, normal inspection - SKIN Integumentary: normal color, warm/dry - NEUROLOGIC Neurologic: grossly normal, no motor/sensory deficits - PSYCHIATRIC Psych/Mental Status: normal mood/affect, normal thought content, normal thought process, oriented x 3 Progress - PLAN OF CARE/RESULTS Progress/Plan/Lab Results: Vital Signs - 8 hr 02/23/17 11:03 02/23/17 12:00 Temperature 98.4 F Pulse Rate 67 69 Respiratory Rate 34 H 22 Blood Pressure 178/85 189/81 O2 Sat by Pulse Oximetry 100 91 L Laboratory Results - last 24 hr 02/23/17 02/23/17 02/23/17 11:17 11:17 11:17 WBC 0.95 L RBC 2.90 L Hgb 8.2 L Hct 23.6 L MCV 81.4 MCH 28.3 MCHC 34.7 RDW Std Deviation 13.4 Plt Count 43 L MPV 8.2 Immature Gran % (Auto) 0.0 Neut % (Auto) 43.0 Lymph % (Auto) 45.3 Pershing % (Auto) 9.5 H Eos % (Auto) 1.1 Baso % (Auto) 1.1 H Immature Gran # (Auto) 0.00 Neut # (Auto) 0.41 L* Lymph # (Auto) 0.43 L Pershing # (Auto) 0.09 L Eos # (Auto) 0.01 Baso # (Auto) 0.01 Segmented Neutrophils 55 Band Neutrophils 10 H Lymphocytes 25 Monocytes 10 H PT INR PTT (Actin FS) D-Dimer 1.89 H Sodium 133 L Potassium 4.2 Chloride 95 L Carbon Dioxide 22 L Anion Gap 16 BUN 12 Creatinine 0.6 Estimated GFR/1.73 m2 > 60 BUN/Creatinine Ratio 20 Glucose 176 H Calculated Osmolality 270 Calcium 8.9 Magnesium 1.7 Total Bilirubin 0.84 AST 20 ALT 12 Alkaline Phosphatase 138 H Creatine Kinase 13 L Troponin T Unx-I-Shyrtanozmi Pept Total Protein 6.8 Albumin 3.4 L Globulin 3.4 Albumin/Globulin Ratio 1.0 02/23/17 02/23/17 02/23/17 11: 11: 11:17 WBC RBC Hgb Hct MCV MCH MCHC RDW Std Deviation Plt Count MPV Immature Gran % (Auto) Neut % (Auto) Lymph % (Auto) Pershing % (Auto) Eos % (Auto) Baso % (Auto) Immature Gran # (Auto) Neut # (Auto) Lymph # (Auto) Pershing # (Auto) Eos # (Auto) Baso # (Auto) Segmented Neutrophils Band Neutrophils Lymphocytes Monocytes PT 13.1 H INR 1.23 PTT (Actin FS) 36.5 H D-Dimer Sodium Potassium Chloride Carbon Dioxide Anion Gap BUN Creatinine Estimated GFR/1.73 m2 BUN/Creatinine Ratio Glucose Calculated Osmolality Calcium Magnesium Total Bilirubin AST ALT Alkaline Phosphatase Creatine Kinase Troponin T < 0.010 Gfd-I-Wofmygnqlob Pept 1571 H Total Protein Albumin Globulin Albumin/Globulin Ratio Orders Category Date Time Status Cardiac Monitoring DIRECTED Care 02/23/17 11:06 Active Saline Loc NOW Care 02/23/17 11:06 Active ANGIOGRAM/PULMONARY ARTERIES [CT] Stat Exams 02/23/17 12:04 Completed CHEST-PORTABLE [RAD] Stat Exams 02/23/17 11:07 Completed CBC WITH ELECTRONIC DIFF [HEME] Stat Lab 02/23/17 11:17 Completed CK PROFILE [SP CHEM] Stat Lab 02/23/17 11:17 Completed COMPREHENSIVE METABOLIC PANEL [CHEM] Stat Lab 02/23/17 11:17 Completed D-DIMER [CHEM] Stat Lab 02/23/17 11:17 Completed MAGNESIUM [CHEM] Stat Lab 02/23/17 11:17 Completed PRO B-NATRIURETIC PEPTIDE Stat Lab 02/23/17 11:17 Completed PROTIME WITH INR [COAG] Stat Lab 02/23/17 11:17 Completed PTT [COAG] Stat Lab 02/23/17 11:17 Completed TROPONIN T Stat Lab 02/23/17 11:17 Completed Aspirin Med 02/23/17 11:06 Discontinued 325 mg PO STAT STA EKG [EKG] Stat Ther 02/23/17 11:06 Ordered Laboratory Tests 02/23/17 02/23/17 02/23/17 11:17 11:17 11:17 WBC 0.95 L RBC 2.90 L Hgb 8.2 L Hct 23.6 L MCV 81.4 MCH 28.3 MCHC 34.7 RDW Std Deviation 13.4 Plt Count 43 L MPV 8.2 Immature Gran % (Auto) 0.0 Neut % (Auto) 43.0 Lymph % (Auto) 45.3 Pershing % (Auto) 9.5 H Eos % (Auto) 1.1 Baso % (Auto) 1.1 H Immature Gran # (Auto) 0.00 Neut # (Auto) 0.41 L* Lymph # (Auto) 0.43 L Pershing # (Auto) 0.09 L Eos # (Auto) 0.01 Baso # (Auto) 0.01 Segmented Neutrophils 55 Band Neutrophils 10 H Lymphocytes 25 Monocytes 10 H PT INR PTT (Actin FS) D-Dimer 1.89 H Sodium 133 L Potassium 4.2 Chloride 95 L Carbon Dioxide 22 L Anion Gap 16 BUN 12 Creatinine 0.6 Estimated GFR/1.73 m2 > 60 BUN/Creatinine Ratio 20 Glucose 176 H Calculated Osmolality 270 Calcium 8.9 Magnesium 1.7 Total Bilirubin 0.84 AST 20 ALT 12 Alkaline Phosphatase 138 H Creatine Kinase 13 L Troponin T Bhy-B-Dsaiezfjlmj Pept Total Protein 6.8 Albumin 3.4 L Globulin 3.4 Albumin/Globulin Ratio 1.0 02/23/17 02/23/17 02/23/17 11:17 11:17 11:17 WBC RBC Hgb Hct MCV MCH MCHC RDW Std Deviation Plt Count MPV Immature Gran % (Auto) Neut % (Auto) Lymph % (Auto) Pershing % (Auto) Eos % (Auto) Baso % (Auto) Immature Gran # (Auto) Neut # (Auto) Lymph # (Auto) Pershing # (Auto) Eos # (Auto) Baso # (Auto) Segmented Neutrophils Band Neutrophils Lymphocytes Monocytes PT 13.1 H INR 1.23 PTT (Actin FS) 36.5 H D-Dimer Sodium Potassium Chloride Carbon Dioxide Anion Gap BUN Creatinine Estimated GFR/1.73 m2 BUN/Creatinine Ratio Glucose Calculated Osmolality Calcium Magnesium Total Bilirubin AST ALT Alkaline Phosphatase Creatine Kinase Troponin T < 0.010 Til-E-Tuojavqsbay Pept 1571 H Total Protein Albumin Globulin Albumin/Globulin Ratio Result Diagrams: 02/23/17 11:17 02/23/17 11:17 - XRAY 1 XRAY Study: Chest Impression: See EMR Report - CT/MRI 1 CT Study: Angiogram Impression: See EMR Report - CONSULTS/PCP/HOSPITALIST Notification #1 *Consult/PCP/Hospitalist*: Dr Lloyd black Time Discussed: 13:07 Consult Disposition: other (d/c as per Dr Black) Departure - Departure Date of Disposition Decision: 07/17/17 Time of Disposition Decision: 13:08 DIAGNOSIS: Myelodysplasia (myelodysplastic syndrome), Elevated d-dimer Anemia Qualifiers: Anemia type: unspecified type Qualified Code(s): D64.9 - Anemia, unspecified Disposition: HOME 01 Certified Medical Emergency: Emergent Condition: Fair Referrals and Follow-Ups: Barbie Black MD [Primary Care Provider] - - Critical Care Note This patient required my direct & personal management of CC.: No Comments: A 76 y/o F who is well known to Dr black presented with non specific right sided sharp chest pain at one point was 88 on RA yesterday at es, on evealuation her labs at baseline, and gets frequent transfusions, ddimer was elevated CTA was negative for PE, Dr Lloyd black personallu came and evalauted pt in ED and reviwed labs and imaging adn recommended d/c home, as per PCP recommendations will d/c home This chart was documented by the indicated scribe, (Su Jim Scribe) and accurately reflects the services I performed and decisions made by me, Bobby Scott MD, as attested by the provider's signature.
[2017-02-23] MEDS ORDERED: TYLENOL PO PRN (16:08)
[2017-02-23] MEDS ORDERED: SODIUM CHLORIDE 0.9% INJ ONE (16:08)
[2017-02-23] MEDS ORDERED: ZOFRAN IV PRN (16:08)
[2017-02-23] MEDS: DILAUDID IV PRN ×2 (16:10→23:29)
[2017-02-23] MEDS ORDERED: DILAUDID ONE (16:15)
[2017-02-23] MEDS: LASIX IV SCH (16:55)
[2017-02-23] MEDS ORDERED: SODIUM CHLORIDE 0.9% INJ PRN (16:59)
[2017-02-23 18:02] LABS: ALLEN TEST YES; BE 3.8 mmoll (-3.0-3.0); BLOOD TYPE ARTERIAL; DRAW SITE R RADIAL; METHB 1.1 % (0.0-1.5); MODALITY CANNULA; PCO2(98.6) 36 mmHg (35-45); PO2(98.6) 70 mmHg (60-100); SAMPLE BLOOD; THB 8.2 g/dL (11.5-17.4); pH(98.6) 7.49 (7.35-7.45)
[2017-02-23 19:43] LABS: ALLEN TEST YES; BE 3.9 mmoll (-3.0-3.0); BLOOD TYPE ARTERIAL; DRAW SITE R BRACHIAL; METHB 0.9 % (0.0-1.5); MODALITY CANNULA; O2(CT) 10.8 mL/dL (15.0-23.0); PCO2(98.6) 34 mmHg (35-45); PO2(98.6) 74 mmHg (60-100); SAMPLE BLOOD; pH(98.6) 7.51 (7.35-7.45)
[2017-02-23] MEDS: TENEX PO SCH (20:29)
[2017-02-23] MEDS: IMDUR PO SCH (20:29)
[2017-02-23] MEDS: ZOVIRAX PO SCH (20:29)
[2017-02-23] MEDS: ZANTAC PO SCH (20:29)
[2017-02-24] MEDS: LASIX IV SCH ×2 (04:13→16:51)
[2017-02-24] MEDS: DILAUDID IV PRN ×3 (04:40→16:53)
[2017-02-24] MEDS ORDERED: DURAGESIC 25 MICROGM/HR PATCH TD SCH (08:00)
[2017-02-24] MEDS ORDERED: COZAAR PO SCH (09:00)
[2017-02-24 09:20] LABS: BASO% 0.9 % (0.0-0.8); EOS# 0.01 X1000 (0.0-0.7); EOS% 0.9 % (0.0-10.0); HEMATOCRIT 24.5 % (37.0-47.0); HEMOGLOBIN 8.3 g/dL (12.0-16.0); IMM GRAN# 0.02 X1000 (0.0-0.04); IMM GRAN% 1.7 % (0.0-0.5); LYMPH# 0.63 X1000 (1.2-3.4); LYMPH% 54.8 % (20.5-51.1); MANUAL DIFF NEEDED? YES; MCH 27.7 PG (27-31); MCHC 33.9 g/dL (33-37); MCV 81.7 FL (81-99); MONO# 0.08 X1000 (0.11-0.59); MPV 8.6 FL (7.4-10.4); NEUT% 34.7 % (42.2-75.2); PLT 48 X1000 (130-400)
[2017-02-24 09:27] LABS: BANDS 15 % (0-1); HYPOCHROM 1+; LYMPHS 55 % (21-51)
[2017-02-24] MEDS: NON-FORMULARY BULK MED SUBQ SCH (09:33)
[2017-02-24] MEDS: LEVAQUIN 500 MG/D5W 500 MG/100 ML IVPB IV SCH (09:33)
[2017-02-24] MEDS: ZOVIRAX PO SCH ×2 (09:34→20:21)
[2017-02-24] MEDS: SOLU-MEDROL IV SCH ×3 (09:34→23:24)
[2017-02-24] MEDS: ZANTAC PO SCH ×2 (09:35→20:21)
[2017-02-24] MEDS: TENEX PO SCH ×2 (09:35→20:21)
[2017-02-24] MEDS: IMDUR PO SCH ×2 (09:35→20:21)
[2017-02-24] MEDS: CELEXA PO SCH (09:35)
[2017-02-24] MEDS: ARICEPT PO SCH (09:35)
--- NOTE | 2017-02-24 11:57 | HISTORY AND PHYSICAL ---
CHIEF COMPLAINT: Chest pain and shortness of breath. HISTORY OF PRESENT ILLNESS: Ms. 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 She presented to the ER complaining of increasing shortness of breath, PND, orthopnea and increasing peripheral edema. Chest x-rays showed small bilateral pleural effusions. Her D-dimer was elevated and the ER physician ordered a CT pulmonary angiogram which demonstrated no evidence of pulmonary emboli. Her proBNP was in excess of 1590. As stated earlier, she does have a history of ischemic heart disease. She has been having intermittent episodes of chest pressure and chest tightness, but denies any radiation of pain to her neck or arm. Her initial cardiac enzymes were normal. PAST MEDICAL HISTORY: Coronary artery disease, mixed hyperlipidemia, osteoporosis, type 2 insulin- dependent diabetes mellitus complicated by peripheral neuropathy, acute myelogenous leukemia. PAST SURGICAL HISTORY: Vaginal hysterectomy, placement of a port in the right anterior chest. ALLERGIES: Cipro, penicillin, sulfa. SOCIAL HISTORY: She has never smoked. She does not consume alcoholic beverages. She is and lives at home with her . FAMILY HISTORY: Her father had renal cell cancer. Her mother had hypertension and cervical cancer. A brother had hypertension, coronary artery disease status post AL. A sister had hypertension. MEDICATIONS: 1. Aricept 10 mg daily. 2. Celexa 40 mg daily. 3. Tenex 1 mg b.i.d. 4. Humalog 12 units t.i.d. with meals. 5. Imdur 30 mg b.i.d. 6. Reglan 10 mg daily. 7. Mobic 7.5 mg daily. 8. Toprol-XL 50 mg daily. 9. Tresiba 25 units daily. REVIEW OF SYSTEMS: General: She denies any recent weight gain or weight loss. HEENT: She wears glasses. Cardiovascular: See HPI. Pulmonary: See HPI. GI: No reflux, dysphagia, melena, hematochezia, change in bowel habits or rectal bleeding. Endocrine: No polyuria, no polydipsia. No cold or heat intolerance. Skin: No easy bruisability. : No leakage of urine with coughing or laughing. Neurologic: No migraines or seizures. Psychiatric: She has history of depression. PHYSICAL EXAMINATION: GENERAL: This is a chronically ill-appearing, 76-year-old lady in mild distress secondary to shortness of breath. VITAL SIGNS: Temperature 98.4 degrees, pulse 67, respiratory rate 34, BP 178/85. HEENT: Fundi with arteriolar wall thickening. Pupils equal, round, reactive to light. Extraocular eye movements intact. TMs without bullae. NECK: Supple. No masses, JVD or bruits. CV: Regular rate and rhythm. LUNGS: Crackles in the bases bilaterally. ABDOMEN: Soft, nontender, with active bowel sounds. EXTREMITIES: Trace ankle edema. 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 NEURO: She has decreased light touch in the distal extremities bilaterally. ASSESSMENT AND PLAN: 1. Acute on chronic congestive heart failure. I am going to admit her to the CICU. I will place her on a telemetry bed. I will place her on a salt and fluid-restricted diet and aggressively diurese her with Lasix. Blood pressure is too high. I am going to add losartan 50 mg daily. We will arrange for a 2D echocardiogram with color Doppler and spectral flow Doppler studies in the morning. 2. Ischemic heart disease. She is having chest pain. We will continue aspirin, aggressive blood pressure control, and will check serial cardiac enzymes to rule her out for myocardial ischemia by serial enzymes. Given the merchant cytopenia and low platelet count, medicines such as Lovenox are contraindicated. 3. 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 We will continue an 1800 calorie ADA diet, pattern sugars, Humulin R sliding scale, and her regular dosage of Tresiba and Humalog. 4. Pleurisy. She does not have any evidence of a pulmonary emboli. Chest x-ray showed no evidence of pneumonia. She is neutropenic. We will begin low-dose steroids and continue Levaquin and add nebulizer treatments. Given the patient's clinical course and comorbid conditions, I believe that admission to the hospital is both reasonable and necessary. I anticipate that she will be in the hospital for at least 2 midnights and I will, therefore, place her in inpatient status. cc: Tomi Black MD
--- NOTE | 2017-02-24 11:58 | PROGRESS NOTE ---
DATE: 02/24/2017 Mrs. Gaby Arboleda was admitted to [facility] with acute on chronic congestive heart failure. She had PND, orthopnea, dyspnea with exertion and increasing peripheral edema. Her proBNP was 1571. We placed her on a salt and fluid restricted diet and have been aggressively diuresing her with Lasix. She is maintaining O2 saturations of 97% on 4 L of O2. Cardiac enzymes have been negative to this point in time. She continues with persistent right-sided pleuritic chest pain worse with deep inspiration and paroxysms of cough. Her D-dimer was elevated. A CT pulmonary angiogram demonstrated no evidence of pulmonary emboli. She was noted to have pleural and pericardial effusions and mild interstitial edema. She denies any persistent productive cough. No obvious pneumonias were noted.Vital signs: Temperature 98.2 degrees, pulse 68, respirations 10, BP 154/62. CV: Regular rate and rhythm. Lungs: Crackles in the bases bilaterally. There are distant breath sounds. CV: Regular rate and rhythm. No murmur noted. Abdomen: Is soft, nontender, with active bowel sounds. Extremities: Trace ankle edema. ASSESSMENT AND PLAN: 1. Acute on chronic congestive heart failure. We will continue a salt and fluid restricted diet and aggressively diurese her with Lasix. We will arrange for a 2D echocardiogram with color Doppler and spectral flow Doppler studies. 2. Pleuritic chest wall pain. She is persistently neutropenic due to acute myelogenous leukemia. Unfortunately, she has not responded to therapy. We did not see any obvious infiltrates on the initial chest x-ray or CT scan. I will go ahead and treat her with nebulizer treatments, IV Solu-Medrol and intravenous Levaquin. I will add Duragesic 25 mcg patch to the chest every 3 days and use Dilaudid for breakthrough pain. 3. 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 We will continue the Lantus, Levemir, 1800 calorie ADA diet and pattern sugars, with a Humulin R sliding scale. 4. Persistent pancytopenia due to acute myelogenous leukemia. Clinically, she has not responded to therapy and she is really almost too weak to consider further therapy and chemotherapy at this point. Her oncologist in [place] has broached the idea of hospice. Dr. Jiang has broached the idea of hospice. I certainly agree that she is at end-stage and that her treatments are largely palliative at this point. I too believe that she would be a good candidate for hospice. I have had a long discussion with the family in regard to hospice and they are considering it at this time. 5. No code blue level 1. cc: Tomi Black MD
[2017-02-24] MEDS: HUMULIN R SUBQ SCH ×3 (12:25→20:21)
[2017-02-24] MEDS: HUMALOG SUBQ SCH ×2 (12:25→16:51)
--- NOTE | 2017-02-24 16:41 | ECHO REPORT ---
ORDER DATE: 02/23/2017 INDICATION FOR THE STUDY: Congestive heart failure. FINDINGS: 1. The right atrium is normal in size. 2. Mild tricuspid regurgitation. RV systolic pressure of 44. 3. Normal RV size and systolic function. 4. Trace pulmonic insufficiency. 5. Normal left atrial size at 3.7 cm. 6. No mitral prolapse. Mild mitral regurgitation. 7. Normal LV size, end-diastolic dimension of 4.8. There is moderate left ventricular hypertrophy with posterior and interventricular septal wall thickness of 1.4 and 1.6 cm respectively. Normal LV systolic function with a calculated EF of 63% with normal wall motion. 8. Aortic valve opens well. No evidence of stenosis. Mild aortic insufficiency. 9. Aorta appears normal in visualized segments. 10. There is a small localized pericardial effusion in the posterior aspect. There is no evidence of tamponade physiology. cc: MD Tmoi Ivey MD
[2017-02-25] MEDS: LASIX IV SCH ×2 (03:29→15:31)
[2017-02-25] MEDS: HUMALOG SUBQ SCH ×5 (06:00→21:01)
[2017-02-25] MEDS: HUMULIN R SUBQ SCH ×2 (06:00→11:28)
--- NOTE | 2017-02-25 08:10 | Diag Imaging Result Doc PS360 ---
EXAM: CHEST-PORTABLE HISTORY: CHF TECHNIQUE: Portable upright AP COMPARISON: 02/23/2017 FINDINGS: No change in the right jugular line or in the left sided PICC line. There is no pulmonary edema on the current exam. Questionable atelectasis or tiny infiltrate in the left base. Heart is not enlarged. IMPRESSION: Overall improvement compared to the prior exam although there may be atelectasis or tiny infiltrate left base. Electronically signed by Adan Randle 02/25/2017 8:07 AM
[2017-02-25] MEDS: LEVAQUIN 500 MG/D5W 500 MG/100 ML IVPB IV SCH (08:27)
[2017-02-25] MEDS: SOLU-MEDROL IV SCH ×3 (08:27→22:50)
[2017-02-25] MEDS: DILAUDID IV PRN ×5 (08:27→22:34)
[2017-02-25] MEDS: ZOVIRAX PO SCH ×2 (08:29→21:01)
[2017-02-25] MEDS: ZANTAC PO SCH ×2 (08:29→21:01)
[2017-02-25] MEDS: TENEX PO SCH ×2 (08:29→21:01)
[2017-02-25] MEDS: ARICEPT PO SCH (08:29)
[2017-02-25] MEDS: NON-FORMULARY BULK MED SUBQ SCH (08:29)
[2017-02-25] MEDS: IMDUR PO SCH ×2 (08:29→21:01)
[2017-02-25] MEDS: CELEXA PO SCH (08:29)
[2017-02-25] MEDS: COZAAR PO SCH (08:29)
--- NOTE | 2017-02-25 11:20 | PROGRESS NOTE ---
DATE: 02/25/2017 Mrs. Arboleda was admitted to [facility] with acute respiratory failure secondary to acute congestive heart failure. Her echocardiogram demonstrated normal LV size with moderate LV hypertrophy with an EF of 63%. There was mild mitral regurgitation and mild aortic insufficiency. There was a small localized pericardial effusion. No evidence of tamponade. She is breathing more comfortably. She is maintaining O2 saturations of 95-100% on 2 L of O2. Her I's and O's are negative by over 2 L since admission. Her blood pressure is still fluctuating at times. She denies any chest pain, palpitations, or anginal equivalents.Vital signs: Temperature 97.7 degrees, pulse 55, respirations 16, BP 181/66. CV: Regular rate and rhythm. Lungs: Lungs sound much more clear. I really do not hear crackles in the bases. Abdomen: Soft, nontender, with active bowel sounds. Extremities: Without edema. ASSESSMENT AND PLAN: 1. Acute respiratory failure secondary to acute congestive heart failure. We will continue a salt and fluid restricted diet and diurese her with Lasix. I will recheck a PA and lateral chest x-ray today. 2. Hypertension. Her blood pressure is still too high. I will increase the losartan to 100 mg daily. 3. 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 Blood sugars are fluctuating secondary to the IV Solu-Medrol. I am going to increase the Tresiba to 25 units daily and begin to taper down on the IV methylprednisolone. cc: Tomi Black MD
[2017-02-26] MEDS: DILAUDID IV PRN ×6 (01:36→17:33)
[2017-02-26] MEDS: LASIX IV SCH (04:16)
[2017-02-26] MEDS: PHENERGAN IV PRN ×3 (04:16→10:34)
[2017-02-26 05:25] LABS: BASO% 1.9 % (0.0-0.8); HEMATOCRIT 25.9 % (37.0-47.0); HEMOGLOBIN 9.2 g/dL (12.0-16.0); IMM GRAN# 0.05 X1000 (0.0-0.04); IMM GRAN% 3.1 % (0.0-0.5); LYMPH# 0.33 X1000 (1.2-3.4); LYMPH% 20.5 % (20.5-51.1); MANUAL DIFF NEEDED? YES; MCH 28.1 PG (27-31); MCHC 35.5 g/dL (33-37); MCV 79.2 FL (81-99); MONO# 0.25 X1000 (0.11-0.59); MONO% 15.5 % (1.7-9.3); MPV 8.8 FL (7.4-10.4); PLT 38 X1000 (130-400); RBC 3.27 XMIL (4.2-5.4)
[2017-02-26 05:35] LABS: AGAP 16; BUN 40 mg/dL (8-22); CHLORIDE 94 mmol/L (98-107); COSMO 292; POTASSIUM 3.6 mmol/L (3.5-5.1); SODIUM 137 mmol/L (136-145); TCO2 27 mmol/L (25-35)
[2017-02-26] MEDS: HUMALOG SUBQ SCH ×7 (06:15→20:45)
[2017-02-26] MEDS: SOLU-MEDROL IV SCH ×2 (07:41→17:32)
[2017-02-26] MEDS: LEVAQUIN 500 MG/D5W 500 MG/100 ML IVPB IV SCH (07:42)
[2017-02-26 08:16] LABS: LYMPHS 18 % (21-51); MONO 8 % (1-9)
[2017-02-26] MEDS ORDERED: DURAGESIC 50 MICROGM/HR PATCH TD SCH (09:00)
[2017-02-26] MEDS: TENEX PO SCH ×2 (09:12→20:43)
[2017-02-26] MEDS: CELEXA PO SCH (09:12)
[2017-02-26] MEDS: NORVASC PO SCH (09:12)
[2017-02-26] MEDS: COZAAR PO SCH (09:12)
[2017-02-26] MEDS: ARICEPT PO SCH (09:12)
[2017-02-26] MEDS: ZOVIRAX PO SCH ×2 (09:12→20:43)
[2017-02-26] MEDS: NON-FORMULARY BULK MED SUBQ SCH (09:13)
[2017-02-26] MEDS: MORPHINE IR PO PRN ×2 (09:13→14:59)
[2017-02-26] MEDS: LASIX PO SCH (09:13)
[2017-02-26] MEDS: IMDUR PO SCH ×2 (09:13→20:43)
[2017-02-26] MEDS: ZANTAC PO SCH ×2 (09:13→20:43)
[2017-02-26 09:24] LABS: URINE CULTURE NEEDED? NO; URINE MICRO REVIEW NEEDED? NO; URINE SOURCE CATH
[2017-02-26 09:28] LABS: BILIRUBIN URINE NEGATIVE (NEGATIVE); BLOOD URINE LARGE (NEGATIVE); COLOR YELLOW; GLUCOSE URINE NEGATIVE (NEGATIVE); LEUKOCYTES URINE NEGATIVE (NEGATIVE); NITRITE URINE NEGATIVE (NEGATIVE); PH URINE 5.5; PROTEIN URINE 50 mg/dL (NEGATIVE); SP GRAVITY URINE 1.017; TURBIDITY URINE HAZY (CLEAR); UROBILINOGEN URINE NORMAL (NORMAL)
[2017-02-26 09:29] LABS: UR EPITHELIAL CELLS <10 /HPF (<10); URINE BACTERIA NEGATIVE /HPF; URINE RBC TNTC /HPF (<10); URINE WBC <10 /HPF (<10)
--- NOTE | 2017-02-26 13:07 | PROGRESS NOTE ---
DATE: 02/26/2017 SUBJECTIVE: Mrs. Arboleda was admitted to [facility] with acute respiratory failure with hypoxia secondary to acute congestive heart failure. Her echocardiogram demonstrated mild tricuspid regurgitation and mild mitral regurgitation. There was moderate left ventricular hypertrophy with an EF of 63%. She has diuresed well. Repeat chest x-rays have shown resolution of the interstitial edema. She is maintaining good O2 saturations of 93 to 96% on 2 L of O2. She has a history of hypertension. Her blood pressure is fluctuating. Systolic blood pressures are ranging from 180-195, whereas her diastolic blood pressures are ranging from 87-95. She denies any chest pain, palpitations, or anginal equivalents. She is with complaint of worsening low back pain. She has radiation of pain into her lower extremities. She still has significant pleuritic chest pain. Her family reports that she simply cannot get comfortable. She denies any dysuria, increased urinary frequency, or gross hematuria. OBJECTIVE: Vital signs: Temperature 98.2 degrees, pulse 92, respirations 16, BP 184/95. CV: Regular rate and rhythm. Lungs: Clear. Abdomen: Soft, nontender, with active bowel sounds. Extremities: Without edema. Musculoskeletal: No CVA tenderness. ASSESSMENT AND PLAN: 1. Acute respiratory failure with hypoxia secondary to acute congestive heart failure. We will continue a salt and fluid restricted diet and I will switch her to oral Lasix. We will continue supplemental O2. 2. Hypertension. Her blood pressure is still too high. I will continue losartan 100 mg daily, Tenex 1 mg b.i.d., and add amlodipine 5 mg daily. 3. Low back pain and pleuritic chest pain. The etiology is unclear. Chest x-rays have demonstrated no pneumonia. Pulmonary angiogram demonstrated no pneumonia and no evidence of PTE. I am going to increase the Duragesic to 50 mcg 1 patch every 3 days and add MSIR 15 mg q.4 hours p.r.n. pain. We will also use Dilaudid. If we are not able to achieve pain control with this combination of medicines, we certainly could try a BAND TIER pump. I will taper down on the steroids. 4. Acute myelogenous leukemia. Her white count was up to 1.6. Her platelet count was 38,000. I will type, crossmatch, and transfuse 1 unit of apheresis platelets. cc: Tomi Black MD
[2017-02-26] MEDS ORDERED: DILAUDID IV PRN (17:57)
[2017-02-27] MEDS: HUMALOG SUBQ SCH ×4 (06:01→14:48)
[2017-02-27] MEDS: SOLU-MEDROL IV SCH (06:01)
--- NOTE | 2017-02-27 07:04 | EKG Report ---
Test Performed on : 02/26/2017 5:28:06 PM Test Reason : increaded HR Blood Pressure : / mmHG Vent. Rate : 129 BPM Atrial Rate : 129 BPM P-R Int : 130 ms QRS Dur : 092 ms QT Int : 296 ms P-R-T Axes : 048 -24 055 degrees QTc Int : 433 ms Sinus tachycardia. Minimal voltage criteria for LVH, may be normal variant Nonspecific ST abnormality Abnormal ECG When compared with ECG of 24-DEC-2016 21:53, Vent. rate has increased BY 56 BPM Confirmed by Tomi Black MD ([id number]) on 02/27/2017 1:09:51 PM
[2017-02-27] MEDS: LEVAQUIN 500 MG/D5W 500 MG/100 ML IVPB IV SCH (08:37)
[2017-02-27] MEDS: ARICEPT PO SCH (09:21)
[2017-02-27] MEDS: IMDUR PO SCH (09:25)
[2017-02-27] MEDS: COZAAR PO SCH (09:25)
[2017-02-27] MEDS: CELEXA PO SCH (09:25)
[2017-02-27] MEDS: TENEX PO SCH (09:26)
[2017-02-27] MEDS: NORVASC PO SCH (09:26)
[2017-02-27] MEDS: LASIX PO SCH (09:26)
[2017-02-27] MEDS: ZANTAC PO SCH (09:26)
[2017-02-27] MEDS: ZOVIRAX PO SCH (09:26)
[2017-02-27 11:59] VITALS: BP 110/51
--- NOTE | 2017-02-27 15:07 | PROGRESS NOTE ---
DATE: 02/27/2017 SUBJECTIVE: Ms. Arboleda was admitted to [facility] with acute congestive heart failure and acute respiratory failure. She was diuresed aggressively and was treated with supplemental O2. Repeat chest x-ray showed clearing of the interstitial edema. She had been having significant low back pain and chest wall pain with deep inspiration and paroxysms of cough. Chest x-rays demonstrated no infiltrates. A CT angiogram demonstrated no pulmonary embolus. IV Dilaudid every 3 hours was not holding her. We added Duragesic 25 mcg daily and increased the Dilaudid to 1 mg q.1 hour hours p.r.n. pain. She was requesting the pain medicines hourly. Yesterday afternoon she began having worsening confusion, disorientation, and hypoxia. We increased her to a nonrebreather in order to maintain O2 saturations greater than 90. We backed down on the IV Dilaudid. This morning, she is unresponsive to verbal or painful stimuli. She does not follow or track movements in the room. She does not respond when her family is speaking to her. They have not really seen any spontaneous movements of her legs or arms. OBJECTIVE: Vital signs: Temperature 97.6 degrees, pulse is 114. Respiratory rate 26. Blood pressure 110/51. General: She is unresponsive to verbal or painful stimuli. I do not see any spontaneous movements of her arms or legs. CARDIOVASCULAR: Tachycardic. Regular S1, S2. Lungs: Distant breath sounds with increased period of expiration. Occasional crackles in the bases bilaterally. Abdomen: Soft, nontender, with active bowel sounds. DIAGNOSTICS/LABORATORY: Her most recent blood work included a CBC and a basic metabolic panel. CBC demonstrated white count 1.61, hemoglobin 9.2, hematocrit 25.9 and a platelet count of 38,000. Chemistries demonstrate a sodium 137, potassium 3.6, chloride 94, BUN 40, creatinine 0.8, glucose 252. ASSESSMENT AND PLAN: End-stage acute myelogenous leukemia. She has been persistently neutropenic over the past several months and has been on oral Levaquin. She has been hospitalized multiple times with febrile neutropenia and completed a course of Primaxin and vancomycin with home IV antibiotic therapy. She remains persistently neutropenic. She has been too weak to undergo further chemotherapy treatments. She continues to decline clinically. I have had multiple long discussions with Mr. Arboleda and his family. They are agreeable to hospice care and wish to proceed with hospice care. She does have a living will. In the event of a cardiopulmonary arrest, no heroic measures should be undertaken. A No Code Blue Level 1 has been established. I will consult [facility] for consideration of inpatient hospice. cc: Tomi Black MD
--- NOTE | 2017-02-27 15:23 | PROGRESS NOTE ---
DATE: 02/27/2017 SUBJECTIVE: Ms. Arboleda was admitted to [facility] with acute congestive heart failure. She has diuresed well and her chest x-rays are clearing up. She does have a history of acute myelogenous leukemia. She has been having severe chest wall pain and lower back pain. The pain was incapacitating. We increased the Duragesic to 50 mcg, 1 patch to the chest every 3 days and increased the Dilaudid to 1 mg IV q.1 hours p.r.n. pain. This afternoon she is resting quietly. Her pain seems under good control. She has been having episodes of hypoxia, requiring increasing amounts of oxygen. ASSESSMENT AND PLAN: The family wants to keep her as comfortable as possible. She is a No Code Blue Level 1. I suspect that we have suppressed her breathing with the use of narcotics. We will continue the Duragesic patch. I am going to stopped the MSIR. I will change Dilaudid to 0.5 mg IV q.3 hours p.r.n. pain. cc: Tomi Black MD
--- NOTE | 2017-02-28 16:40 | DISCHARGE SUMMARY ---
ADMISSION DATE: 02/27/2017 DISCHARGE DATE: 02/27/2017 DISCHARGE DIAGNOSES: 1. Acute respiratory failure with hypoxia secondary to acute congestive heart failure. 2. Ischemic heart disease. 3. Essential hypertension. 4. Pancytopenia secondary to acute myelogenous leukemia. HOSPITAL COURSE: Ms. Arboleda was admitted to Inpatient Hospice with [facility]. Palliative measures were undertaken as per hospice protocol. Ms. Arboleda with her family present given her underlying acute myelogenous leukemia. She is not considered to be a candidate for organ donation. cc: Tomi Black MD
== END 2017-02-27 14:51 | disposition hospice, inpatient (51) ==
LOC: SUPCPDRO → EDSEX → ED 10:45 → EDIPHOLD 14:06 → 3S 16:57
PROVIDERS: ADMIT Internal Medicine; ATTEND Internal Medicine

== ENCOUNTER 2017-02-27 14:52 | Inpatient (IN) ==
[2017-02-27] MEDS ORDERED: DURAGESIC 50 MICROGM/HR PATCH TD SCH (16:28)
[2017-02-27] MEDS ORDERED: TYLENOL PO PRN (16:28)
[2017-02-27] MEDS ORDERED: ATIVAN IV PRN (16:28)
[2017-02-27] MEDS ORDERED: CATAPRES-TTS-3 TD SCH (16:28)
[2017-02-27] MEDS ORDERED: ROXANOL CONC. LIQUID SL PRN (16:28)
[2017-02-27] MEDS ORDERED: ZOFRAN IV PRN (16:28)
[2017-02-27 16:59] VITALS: BP 116/79
--- NOTE | 2017-02-28 13:31 | HISTORY AND PHYSICAL ---
CHIEF COMPLAINT: Acute respiratory failure. HISTORY OF PRESENT ILLNESS: Mrs. 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 She was hospitalized at [facility] from 02/23 to 02/27/2017 with acute respiratory failure secondary to acute congestive heart failure. Her hospitalization was complicated. In spite of aggressive measures throughout her hospitalization Mrs. Arboleda continued to decline clinically. The family opted to initiate palliative measures and requested admission to inpatient hospice. PAST MEDICAL HISTORY, PAST SURGICAL HISTORY, ALLERGIES, FAMILY HISTORY, SOCIAL HISTORY: Were unchanged. REVIEW OF SYSTEMS: A 12-point review of system with pertinent positives and negatives was reviewed. This is a chronically ill-appearing, 76-year-old lady who is unresponsive to verbal and painful stimuli. She is afebrile, 150/90, respirations 32, pulse 76.HEENT: Fundi with arteriolar wall thickening. Pupils equal, round, reactive to light. Extraocular eye movements intact. TMs without bullae. Neck: Supple. No masses, JVD or bruits. CV: Regular rate and rhythm. Lungs: Distant breath sounds with increased period of expiration. Abdomen: Soft, nontender, with active bowel sounds. Extremities: Trace ankle edema. Neurologic: She is obtunded and does not arouse to verbal or painful stimuli. ASSESSMENT AND PLAN: 1. Acute respiratory failure with hypoxia. 2. Acute congestive heart failure. 3. Acute myelogenous leukemia. The patient will be admitted to inpatient hospice with [facility]. At this point in time, I believe she is a candidate for hospice as I believe that her will occur within 48-72 hours. We will continue 100% non-rebreather, Duragesic patch and use Roxanol sublingual q.30 minutes p.r.n. air hunger. We will use Ativan 1 mg IV q.1 hour as needed for agitation. We will continue a Angulo catheter. She does have a living will and she has stated in the past that in the event of a cardiopulmonary arrest that no heroic measures should be undertaken. A No Code Blue Level 1 has been established. cc: Tomi Black MD
--- NOTE | 2017-02-28 16:39 | DISCHARGE SUMMARY ---
ADMISSION DATE: 02/23/2017 DISCHARGE DATE: 02/27/2017 DISCHARGE DIAGNOSES: 1. Acute respiratory failure with hypoxia secondary to acute congestive heart failure. 2. Unstable angina in the setting of known ischemic heart disease. 3. 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 4. Pleurisy. 5. Pancytopenia secondary to acute myelogenous leukemia. DISCHARGE INSTRUCTIONS: 1. The patient will be transferred to Inpatient Hospice with [facility]. 2. Activity, strict bedrest. 3. Medications: On 100% non-rebreather. Duragesic 50 mcg 1 patch to the chest q.3 days. Roxanol concentrated liquid, 10 mg sublingual to 30 minutes p.r.n. air hunger. Ativan 1 mg IV q.1 hour hours p.r.n. agitation. Zofran 4 mg IV q. 4-6 hours p.r.n. nausea and vomiting. HOSPITAL COURSE: Ms. Arboleda presented to the ER complaining of increasing shortness of breath, PND, orthopnea and increasing peripheral edema. Chest x-ray showed bilateral pleural effusions. Her D-dimer was elevated and a CT pulmonary angiogram demonstrated no evidence of pulmonary emboli. Her proBNP was in excess of 1590. The patient was placed on a salt and fluid restricted diet and was aggressively diuresed with Lasix. Her breathing improved with aggressive diuresis and she had good urine output. We were gradually able to back down on the IV Lasix. We obtained an echocardiogram which demonstrated a small localized pericardial effusion without tamponade. There was mild aortic insufficiency. LV systolic function was normal at 63%. Follow-up chest x- rays demonstrated resolution of the fluid. She continued with pleuritic chest wall pain throughout her hospitalization. She has been persistently neutropenic secondary to AML and has really not responded to therapy. We added IV Levaquin and Solu-Medrol. Blood and urine cultures were normal. She had increasing chest wall pain and low back pain and the pain was incapacitating. We initially treated her with IV Dilaudid every 3 hours, but increased the Dilaudid to 1 mg IV q.1 hour p.r.n. in addition to a Duragesic patch. The pain improved, but she became increasingly sedated and difficult to arouse. She became persistently hypoxic and required significant oxygen up to the point of 100% non-rebreather. The family wanted to keep her as comfortable as possible, but we did not want her to be obtunded. We continued the Duragesic patch, but decreased the Dilaudid to 0.5 mg IV q.3 hours p.r.n. pain. Unfortunately, she continued to decline clinically. We had a long discussion with the family about hospice care. We had broached the idea of hospice in the past, but at that time Ms. Arboleda and her family were not ready to consider hospice. They asked us to continue palliative measures and to keep her as comfortable as possible. She continued to decline and the family opted for inpatient hospice on 02/27/2017. The [facility] condition. cc: Tomi Black MD
== END 2017-02-27 20:05 | disposition expired ==
LOC: 3S 14:52 → 4N 16:55
PROVIDERS: ADMIT Internal Medicine; ATTEND Internal Medicine